=== PATIENT | male | born 1980 | race Two or more races ===

== ENCOUNTER 2017-05-11 08:22 | Inpatient (IN) | payer OTHER ==
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
[2017-05-11] MEDS ORDERED: guaiFENesin/D-METHORPHAN HB 10 ML UNIT-DOSE CUPS PO PRN (12:21)
[2017-05-11] MEDS ORDERED: MAGNESIUM CITRATE 300 ML BOTTLE PO PRN (12:21)
[2017-05-11] MEDS ORDERED: LOPERAMIDE HCL 2 MG CAPSULE PO PRN (12:21)
[2017-05-11] MEDS ORDERED: MAG HYDROX/AL HYDROX/SIMETH 30 ML UNIT-DOSE CUP PO PRN (12:21)
[2017-05-11] MEDS ORDERED: IBUPROFEN 400 MG TABLET (FP) PO PRN (12:21)
[2017-05-11] MEDS ORDERED: P-EPHED 60MG/TRIPROLIDI 2.5MG TABLET PO PRN (12:21)
[2017-05-11] MEDS ORDERED: NICOTINE POLACRILEX 4 MG GUM BC PRN (12:21)
[2017-05-11] MEDS ORDERED: MAGNESIUM HYDROX 2400MG/30ML ORAL SUSPENSION 30 ML CUP PO PRN (12:21)
[2017-05-11] MEDS ORDERED: MENTHOL/PHENOL 1 EACH UD MM PRN (12:21)
[2017-05-11] MEDS ORDERED: diphenhydrAMINE HCL 50 MG CAPSULE PO PRN (12:21)
[2017-05-11] MEDS ORDERED: ACETAMINOPHEN 325 MG TABLET (FP) PO PRN (12:21)
[2017-05-11] MEDS ORDERED: METHADONE HCL 10 MG TABLET PO ONE (12:25)
[2017-05-11] MEDS ORDERED: METHADONE HCL 5 MG TABLET ONE (14:11)
[2017-05-11] MEDS ORDERED: METHADONE HCL 10 MG TABLET ONE (14:11)
[2017-05-11] MEDS ORDERED: METHADONE HCL 40 MG DISPERSABLE TABLET ONE (14:12)
[2017-05-11] MEDS: diazePAM 5 MG TABLET PO SCH ×2 (14:16→22:39)
[2017-05-11] MEDS ORDERED: diazePAM 5 MG TABLET PO ONE (14:30)
[2017-05-11] MEDS ORDERED: METHADONE 120 MG, METHADONE 10 MG, METHADONE 5 MG PO ONE (14:30)
[2017-05-11] MEDS: NICOTINE 21 MG/24 HOURS TOPICAL PATCH TD SCH (14:42)
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
[2017-05-11] MEDS: SERTRALINE HCL 50 MG TABLET (FP) PO SCH (16:59)
[2017-05-11 19:12] LABS: HIV 1 & 2 AB NEGATIVE; HIV 1 AGp24 NEGATIVE
[2017-05-11] MEDS: TOLNAFTATE 1% CREAM 15 GM TUBE TP SCH (22:38)
[2017-05-11] MEDS: traZODone HCL 50 MG TABLET (FP) PO SCH (22:39)
[2017-05-11] MEDS: THIAMINE HCL 100 MG TABLET (FP) PO SCH (22:39)
[2017-05-11] MEDS: ARIPiprazole 10 MG TABLET PO SCH (22:40)
[2017-05-12] MEDS ORDERED: METHADONE HCL 5 MG TABLET ONE (04:34)
[2017-05-12] MEDS ORDERED: METHADONE HCL 10 MG TABLET ONE (04:34)
[2017-05-12] MEDS ORDERED: METHADONE HCL 40 MG DISPERSABLE TABLET ONE (04:35)
[2017-05-12] MEDS: METHADONE 120 MG, METHADONE 10 MG, METHADONE 5 MG PO SCH (05:54)
[2017-05-12] MEDS: diazePAM 5 MG TABLET PO SCH ×3 (05:54→22:29)
[2017-05-12] MEDS ORDERED: METHADONE HCL 10 MG TABLET PO SCH (06:00)
[2017-05-12] MEDS: diazePAM 5 MG TABLET PO PRN (09:17)
--- NOTE | 2017-05-12 10:04 | EKG ---
Test Reason : Blood Pressure : / mmHG Vent. Rate : 065 BPM Atrial Rate : 065 BPM P-R Int : 132 ms QRS Dur : 086 ms QT Int : 420 ms P-R-T Axes : 067 055 029 degrees QTc Int : 436 ms NORMAL SINUS RHYTHM NORMAL ECG NO PREVIOUS ECGS AVAILABLE Confirmed by GURPREET PITTMAN MD ([id number]) on 05/12/2017 10:04:14 AM Referred By: Confirmed By:GURPREET PITTMAN MD
[2017-05-12 10:14] LABS: MCH 31.5 pg (25.7-33.7); MCHC 33.2 g/dl (32.0-35.9); MEAN CELL VOLUME 94.9 fl (80-96); MEAN PLT VOLUME 10.2 fl (7.5-11.1); PLATELET COUNT 255 K/MM3 (134-434); RDW 13.2 % (11.9-15.9); WHITE BLOOD COUNT 6.5 K/mm3 (4.0-10.0)
[2017-05-12 10:15] LABS: URINE APPEARANCE TURBID; URINE BILIRUBIN NEGATIVE (NEGATIVE); URINE BLOOD NEGATIVE (NEGATIVE); URINE COLOR YELLOW; URINE GLUCOSE (UA) NEGATIVE (NEGATIVE); URINE KETONE NEGATIVE (NEGATIVE); URINE LEUK ESTERASE NEGATIVE (NEGATIVE); URINE NITRITE NEGATIVE (NEGATIVE); URINE UROBILINOGEN 2.0 E.U/dl E.U./dl (0.2-1.0)
[2017-05-12 10:18] LABS: URINE PROTEIN 1+ (NEGATIVE)
[2017-05-12] MEDS: TOLNAFTATE 1% CREAM 15 GM TUBE TP SCH ×2 (10:37→22:30)
[2017-05-12] MEDS: SERTRALINE HCL 50 MG TABLET (FP) PO SCH (10:38)
[2017-05-12] MEDS: NICOTINE 21 MG/24 HOURS TOPICAL PATCH TD SCH (10:38)
[2017-05-12] MEDS: PRENATAL VITAMINS W/ FOLIC ACID TABLET (FP) PO SCH (10:38)
[2017-05-12 10:46] LABS: ALBUMIN 3.9 g/dl (3.4-5.0); ANION GAP 9 (8-16); CALCIUM 9.4 mg/dL (8.5-10.1); CO2 28 mmol/L (21-32); GLUCOSE,RANDOM 89 mg/dL (74-106); SGOT/AST 15 U/L (15-37); SGPT/ALT 21 U/L (12-78)
[2017-05-12 10:48] LABS: ALK PHOS 70 U/L (45-117); BILIRUBIN,TOTAL 0.2 mg/dL (0.2-1.0); CREATININE 0.8 mg/dL (0.7-1.3); TOT PROT 7.2 g/dl (6.4-8.2)
[2017-05-12 11:14] LABS: URINE MUCUS FEW; URINE RBC 4 /hpf (0-3)
--- NOTE | 2017-05-12 16:19 | PN ---
S CIWA - CIWA Score Nausea/Vomitin Muscle Tremors: 4-Moderate,w/Arms Extend Anxiety: 3 Agitation: 2 Paroxysmal Sweats: No Perspiration Orientation: 0-Oriented Tacttile Disturbances: 2-Mild Itch/Numbness/Burn Auditory Disturbances: 2-Mild Harshness/Frighten Visual Disturbances: 3-Moderate Sensitivity Headache: 0-None Present CIWA-Ar Total Score: 19 BHS Progress Note (SOAP) Subjective: Stomach Cramping, Nausea, Runny Nose, Tremors. Objective: PT. A & O X 3. NO ACUTE DISTRESS. 05/12/17 16:18 Vital Signs Temperature 97.2 F L 05/12/17 14:08 Pulse Rate 54 L 05/12/17 14:08 Respiratory Rate 18 05/12/17 14:08 Blood Pressure 95/51 05/12/17 14:08 O2 Sat by Pulse Oximetry (%) Laboratory Tests 05/11/17 05/12/17 05/12/17 10:30 06:10 06:10 WBC 6.5 RBC 4.29 Hgb 13.5 Hct 40.7 MCV 94.9 MCHC 33.2 RDW 13.2 Plt Count 255 D MPV 10.2 Sodium 143 Potassium 4.2 Chloride 106 Carbon Dioxide 28 Anion Gap 9 BUN 20 H Creatinine 0.8 Creat Clearance w eGFR > 60 Random Glucose 89 D Calcium 9.4 Total Bilirubin 0.2 D AST 15 D ALT 21 D Alkaline Phosphatase 70 Total Protein 7.2 Albumin 3.9 Urine Color Urine Appearance Urine pH Ur Specific [place] Urine Protein Urine Glucose (UA) Urine Ketones Urine Blood Urine Nitrite Urine Bilirubin Urine Urobilinogen Ur Leukocyte Esterase Urine RBC Urine WBC Amorphous Urates Urine Mucus HIV 1&2 Antibody Screen Negative HIV P24 Antigen Negative 05/12/17 08:40 WBC RBC Hgb Hct MCV MCHC RDW Plt Count MPV Sodium Potassium Chloride Carbon Dioxide Anion Gap BUN Creatinine Creat Clearance w eGFR Random Glucose Calcium Total Bilirubin AST ALT Alkaline Phosphatase Total Protein Albumin Urine Color Yellow Urine Appearance Turbid Urine pH 6.0 Ur Specific [place] >= 1.030 H Urine Protein 1+ H Urine Glucose (UA) Negative Urine Ketones Negative Urine Blood Negative Urine Nitrite Negative Urine Bilirubin Negative Urine Urobilinogen 2.0 e.u/dl Ur Leukocyte Esterase Negative Urine RBC 4 Urine WBC None Amorphous Urates Many Urine Mucus Few HIV 1&2 Antibody Screen HIV P24 Antigen LABS NOTED. Assessment: 05/12/17 16:19 WITHDRAWAL SYMPTOMS. Plan: CONTINUE DETOX. INCREASE PO FLUID INTAKE.
[2017-05-12] MEDS: traZODone HCL 50 MG TABLET (FP) PO SCH (22:29)
[2017-05-12] MEDS: ARIPiprazole 10 MG TABLET PO SCH (22:29)
[2017-05-12] MEDS: THIAMINE HCL 100 MG TABLET (FP) PO SCH (22:29)
[2017-05-13] MEDS ORDERED: METHADONE HCL 10 MG TABLET ONE (04:14)
[2017-05-13] MEDS ORDERED: METHADONE HCL 40 MG DISPERSABLE TABLET ONE (04:14)
[2017-05-13] MEDS ORDERED: METHADONE HCL 5 MG TABLET ONE (04:14)
[2017-05-13] MEDS: METHADONE 120 MG, METHADONE 10 MG, METHADONE 5 MG PO SCH (05:34)
[2017-05-13] MEDS: diazePAM 5 MG TABLET PO PRN ×2 (05:36→13:56)
[2017-05-13] MEDS: diazePAM 5 MG TABLET PO SCH ×2 (10:26→22:17)
[2017-05-13] MEDS: PRENATAL VITAMINS W/ FOLIC ACID TABLET (FP) PO SCH (10:26)
[2017-05-13] MEDS: NICOTINE 21 MG/24 HOURS TOPICAL PATCH TD SCH (10:27)
[2017-05-13] MEDS: TOLNAFTATE 1% CREAM 15 GM TUBE TP SCH ×2 (10:28→22:17)
--- NOTE | 2017-05-13 14:11 | PN ---
S CIWA - CIWA Score Nausea/Vomitin Muscle Tremors: 4-Moderate,w/Arms Extend Anxiety: 3 Agitation: 3 Paroxysmal Sweats: 1-Minimal Palms Moist Orientation: 0-Oriented Tacttile Disturbances: 1-Very Mild Itch/Numbness Auditory Disturbances: 0-None Visual Disturbances: 0-None Headache: 3-Moderate CIWA-Ar Total Score: 18 BHS Progress Note (SOAP) Subjective: Anxiety, nausea, headache, interrupted sleep Objective: 05/13/17 14:07 Last Vital Signs Temp Pulse Resp BP Pulse Ox 98.1 F 53 L 18 100/59 05/13/17 13:17 05/13/17 13:17 05/13/17 13:17 05/13/17 13:17 Laboratory Tests 05/11/17 05/12/17 05/12/17 10:30 06:10 06:10 WBC 6.5 RBC 4.29 Hgb 13.5 Hct 40.7 MCV 94.9 MCHC 33.2 RDW 13.2 Plt Count 255 D MPV 10.2 Sodium 143 Potassium 4.2 Chloride 106 Carbon Dioxide 28 Anion Gap 9 BUN 20 H Creatinine 0.8 Creat Clearance w eGFR > 60 Random Glucose 89 D Calcium 9.4 Total Bilirubin 0.2 D AST 15 D ALT 21 D Alkaline Phosphatase 70 Total Protein 7.2 Albumin 3.9 Urine Color Urine Appearance Urine pH Ur Specific [place] Urine Protein Urine Glucose (UA) Urine Ketones Urine Blood Urine Nitrite Urine Bilirubin Urine Urobilinogen Ur Leukocyte Esterase Urine RBC Urine WBC Amorphous Urates Urine Mucus RPR Titer HIV 1&2 Antibody Screen Negative HIV P24 Antigen Negative 05/12/17 05/12/17 06:10 08:40 WBC RBC Hgb Hct MCV MCHC RDW Plt Count MPV Sodium Potassium Chloride Carbon Dioxide Anion Gap BUN Creatinine Creat Clearance w eGFR Random Glucose Calcium Total Bilirubin AST ALT Alkaline Phosphatase Total Protein Albumin Urine Color Yellow Urine Appearance Turbid Urine pH 6.0 Ur Specific [place] >= 1.030 H Urine Protein 1+ H Urine Glucose (UA) Negative Urine Ketones Negative Urine Blood Negative Urine Nitrite Negative Urine Bilirubin Negative Urine Urobilinogen 2.0 e.u/dl Ur Leukocyte Esterase Negative Urine RBC 4 Urine WBC None Amorphous Urates Many Urine Mucus Few RPR Titer Nonreactive HIV 1&2 Antibody Screen HIV P24 Antigen Labs noted: BUN 20, UA: 1+ protein Assessment: 05/13/17 14:09 Withdrawal symptoms Noted with mild azotemia and proteinuria Plan: Continue detox Mild azotemia: encouraged to drink lots of water Proteinuria: encouraged to drink lots of water, repeat UA
[2017-05-13] MEDS: traZODone HCL 50 MG TABLET (FP) PO SCH (22:17)
[2017-05-13] MEDS: THIAMINE HCL 100 MG TABLET (FP) PO SCH (22:17)
[2017-05-13] MEDS: ARIPiprazole 10 MG TABLET PO SCH (22:18)
[2017-05-14] MEDS ORDERED: METHADONE HCL 5 MG TABLET ONE (03:49)
[2017-05-14] MEDS ORDERED: METHADONE HCL 10 MG TABLET ONE (03:49)
[2017-05-14] MEDS ORDERED: METHADONE HCL 40 MG DISPERSABLE TABLET ONE (03:50)
[2017-05-14] MEDS: METHADONE 120 MG, METHADONE 10 MG, METHADONE 5 MG PO SCH (05:42)
[2017-05-14] MEDS: diazePAM 5 MG TABLET PO PRN (05:45)
[2017-05-14] MEDS: NICOTINE 21 MG/24 HOURS TOPICAL PATCH TD SCH (10:47)
[2017-05-14] MEDS: PRENATAL VITAMINS W/ FOLIC ACID TABLET (FP) PO SCH (10:48)
[2017-05-14] MEDS: diazePAM 5 MG TABLET PO SCH ×2 (10:48→22:41)
[2017-05-14] MEDS: TOLNAFTATE 1% CREAM 15 GM TUBE TP SCH ×2 (10:49→22:42)
--- NOTE | 2017-05-14 13:46 | PN ---
BHS Progress Note (SOAP) Subjective: Sweating,interrupted sleep,restless Objective: 05/14/17 13:45 Vital Signs - 8 hr 05/14/17 05/14/17 06:26 09:49 Temperature 97.2 F L 97.0 F L Pulse Rate 68 62 Respiratory 18 18 Rate Blood Pressure 138/79 117/71 Laboratory Last Values WBC 6.5 K/mm3 (4.0-10.0) 05/12/17 06:10 RBC 4.29 M/mm3 (4.00-5.60) 05/12/17 06:10 Hgb 13.5 GM/dL (11.7-16.9) 05/12/17 06:10 Hct 40.7 % (35.4-49) 05/12/17 06:10 MCV 94.9 fl (80-96) 05/12/17 06:10 MCHC 33.2 g/dl (32.0-35.9) 05/12/17 06:10 RDW 13.2 % (11.9-15.9) 05/12/17 06:10 Plt Count 255 K/MM3 (134-434) D 05/12/17 06:10 MPV 10.2 fl (7.5-11.1) 05/12/17 06:10 Sodium 143 mmol/L (136-145) 05/12/17 06:10 Potassium 4.2 mmol/L (3.5-5.1) 05/12/17 06:10 Chloride 106 mmol/L (98-107) 05/12/17 06:10 Carbon Dioxide 28 mmol/L (21-32) 05/12/17 06:10 Anion Gap 9 (8-16) 05/12/17 06:10 BUN 20 mg/dL (7-18) H 05/12/17 06:10 Creatinine 0.8 mg/dL (0.7-1.3) 05/12/17 06:10 Creat Clearance w eGFR > 60 (>60) 05/12/17 06:10 Random Glucose 89 mg/dL (74-106) D 05/12/17 06:10 Calcium 9.4 mg/dL (8.5-10.1) 05/12/17 06:10 Total Bilirubin 0.2 mg/dL (0.2-1.0) D 05/12/17 06:10 AST 15 U/L (15-37) D 05/12/17 06:10 ALT 21 U/L (12-78) D 05/12/17 06:10 Alkaline Phosphatase 70 U/L (45-117) 05/12/17 06:10 Total Protein 7.2 g/dl (6.4-8.2) 05/12/17 06:10 Albumin 3.9 g/dl (3.4-5.0) 05/12/17 06:10 Urine Color Yellow 05/12/17 08:40 Urine Appearance Turbid 05/12/17 08:40 Urine pH 6.0 (5.0-8.0) 05/12/17 08:40 Ur Specific [place] >= 1.030 (1.005-1.025) H 05/12/17 08:40 Urine Protein 1+ (NEGATIVE) H 05/12/17 08:40 Urine Glucose (UA) Negative (NEGATIVE) 05/12/17 08:40 Urine Ketones Negative (NEGATIVE) 05/12/17 08:40 Urine Blood Negative (NEGATIVE) 05/12/17 08:40 Urine Nitrite Negative (NEGATIVE) 05/12/17 08:40 Urine Bilirubin Negative (NEGATIVE) 05/12/17 08:40 Urine Urobilinogen 2.0 e.u/dl E.U./dl (0.2-1.0) 05/12/17 08:40 Ur Leukocyte Esterase Negative (NEGATIVE) 05/12/17 08:40 Urine RBC 4 /hpf (0-3) 05/12/17 08:40 Urine WBC None /hpf (3-5) 05/12/17 08:40 Amorphous Urates Many /hpf (NONE SEEN) 05/12/17 08:40 Urine Mucus Few 05/12/17 08:40 RPR Titer Nonreactive (NONREACTIVE) 05/12/17 06:10 HIV 1&2 Antibody Screen Negative 05/11/17 10:30 HIV P24 Antigen Negative 05/11/17 10:30 labs noted Assessment: 05/14/17 13:46 Withdrawal sx. Plan: Continue detox
[2017-05-14 15:31] LABS: URINE APPEARANCE CLEAR; URINE BILIRUBIN NEGATIVE (NEGATIVE); URINE BLOOD NEGATIVE (NEGATIVE); URINE COLOR STRAW; URINE GLUCOSE (UA) NEGATIVE (NEGATIVE); URINE KETONE NEGATIVE (NEGATIVE); URINE NITRITE NEGATIVE (NEGATIVE); URINE PROTEIN NEGATIVE (NEGATIVE); URINE UROBILINOGEN NEGATIVE E.U./dl (0.2-1.0)
[2017-05-14 15:32] LABS: URINE LEUK ESTERASE TRACE (NEGATIVE)
[2017-05-14 15:34] LABS: URINE BACTERIA RARE /hpf (NONE SEEN); URINE RBC <1 /hpf (0-3)
[2017-05-14] MEDS: ARIPiprazole 10 MG TABLET PO SCH (22:40)
[2017-05-14] MEDS: traZODone HCL 50 MG TABLET (FP) PO SCH (22:41)
[2017-05-14] MEDS: THIAMINE HCL 100 MG TABLET (FP) PO SCH (22:41)
[2017-05-15] MEDS ORDERED: METHADONE HCL 5 MG TABLET ONE (05:12)
[2017-05-15] MEDS ORDERED: METHADONE HCL 10 MG TABLET ONE (05:12)
[2017-05-15] MEDS ORDERED: METHADONE HCL 40 MG DISPERSABLE TABLET ONE (05:13)
[2017-05-15] MEDS: METHADONE 120 MG, METHADONE 10 MG, METHADONE 5 MG PO SCH (05:38)
[2017-05-15] MEDS ORDERED: diazePAM 5 MG TABLET PO SCH (10:00)
[2017-05-15] MEDS: PRENATAL VITAMINS W/ FOLIC ACID TABLET (FP) PO SCH (10:45)
[2017-05-15] MEDS: NICOTINE 21 MG/24 HOURS TOPICAL PATCH TD SCH (10:46)
[2017-05-15] MEDS: TOLNAFTATE 1% CREAM 15 GM TUBE TP SCH ×2 (10:48→22:21)
--- NOTE | 2017-05-15 11:11 | DS ---
[facility] Detox Discharge Summary Admission Date: 05/11/17 Discharge Date: 05/15/17 - History Present History: Alcohol Dependence, Cannabis Dependence, Cocaine Dependence, MMTP Pertinent Past History: Insomnia - Physical Exam Results Vital Signs: Vital Signs Temperature 97.1 F L 05/15/17 09:24 Pulse Rate 69 05/15/17 09:24 Respiratory Rate 18 05/15/17 09:24 Blood Pressure 106/67 05/15/17 09:24 O2 Sat by Pulse Oximetry (%) Pertinent Admission Physical Exam Findings: Withdrawal sx. Laboratory Last Values WBC 6.5 K/mm3 (4.0-10.0) 05/12/17 06:10 RBC 4.29 M/mm3 (4.00-5.60) 05/12/17 06:10 Hgb 13.5 GM/dL (11.7-16.9) 05/12/17 06:10 Hct 40.7 % (35.4-49) 05/12/17 06:10 MCV 94.9 fl (80-96) 05/12/17 06:10 MCHC 33.2 g/dl (32.0-35.9) 05/12/17 06:10 RDW 13.2 % (11.9-15.9) 05/12/17 06:10 Plt Count 255 K/MM3 (134-434) D 05/12/17 06:10 MPV 10.2 fl (7.5-11.1) 05/12/17 06:10 Sodium 143 mmol/L (136-145) 05/12/17 06:10 Potassium 4.2 mmol/L (3.5-5.1) 05/12/17 06:10 Chloride 106 mmol/L (98-107) 05/12/17 06:10 Carbon Dioxide 28 mmol/L (21-32) 05/12/17 06:10 Anion Gap 9 (8-16) 05/12/17 06:10 BUN 20 mg/dL (7-18) H 05/12/17 06:10 Creatinine 0.8 mg/dL (0.7-1.3) 05/12/17 06:10 Creat Clearance w eGFR > 60 (>60) 05/12/17 06:10 Random Glucose 89 mg/dL (74-106) D 05/12/17 06:10 Calcium 9.4 mg/dL (8.5-10.1) 05/12/17 06:10 Total Bilirubin 0.2 mg/dL (0.2-1.0) D 05/12/17 06:10 AST 15 U/L (15-37) D 05/12/17 06:10 ALT 21 U/L (12-78) D 05/12/17 06:10 Alkaline Phosphatase 70 U/L (45-117) 05/12/17 06:10 Total Protein 7.2 g/dl (6.4-8.2) 05/12/17 06:10 Albumin 3.9 g/dl (3.4-5.0) 05/12/17 06:10 Urine Color Straw 05/14/17 11:30 Urine Appearance Clear 05/14/17 11:30 Urine pH 5.0 (5.0-8.0) 05/14/17 11:30 Ur Specific [place] 1.010 (1.005-1.025) 05/14/17 11:30 Urine Protein Negative (NEGATIVE) 05/14/17 11:30 Urine Glucose (UA) Negative (NEGATIVE) 05/14/17 11:30 Urine Ketones Negative (NEGATIVE) 05/14/17 11:30 Urine Blood Negative (NEGATIVE) 05/14/17 11:30 Urine Nitrite Negative (NEGATIVE) 05/14/17 11:30 Urine Bilirubin Negative (NEGATIVE) 05/14/17 11:30 Urine Urobilinogen Negative E.U./dl (0.2-1.0) 05/14/17 11:30 Ur Leukocyte Esterase Trace (NEGATIVE) H 05/14/17 11:30 Urine RBC <1 /hpf (0-3) 05/14/17 11:30 Urine WBC None /hpf (3-5) 05/14/17 11:30 Amorphous Urates Many /hpf (NONE SEEN) 05/12/17 08:40 Urine Bacteria Rare /hpf (NONE SEEN) 05/14/17 11:30 Urine Mucus Few 05/12/17 08:40 [place] 0 MEQ/L (0.6-1.2) L 05/12/17 08:00 RPR Titer Nonreactive (NONREACTIVE) 05/12/17 06:10 HIV 1&2 Antibody Screen Negative 05/11/17 10:30 HIV P24 Antigen Negative 05/11/17 10:30 labs noted - Treatment Hospital Course: Detox Protocol Followed, Detoxed Safely, Responded well, Discharged Condition Good, Rehab Referral Accepted Patient has Accepted a Rehab Referral to: [facility] - Medication Discharge Medications: Ambulatory Orders Methadone [Dolophine -] 135 mg PO DAILY 06/15/16 Albuterol Sulfate Inhaler - [Ventolin HFA Inhaler -] 2 inh PO Q4H PRN #1 inhaler 11/01/16 Trazodone HCl [Desyrel -] 100 mg PO HS 05/11/17 Aripiprazole [Abilify] 10 mg PO HS #30 tablet 05/12/17 Trazodone HCl 50 mg PO HS #30 tablet 05/12/17 - Diagnosis (1) Alcohol dependence with uncomplicated withdrawal Current Visit: Yes Status: Acute (2) Cannabis dependence, uncomplicated Current Visit: Yes Status: Acute (3) Cocaine dependence, uncomplicated Current Visit: Yes Status: Acute (4) Insomnia Current Visit: Yes Status: Acute (5) Nicotine dependence Current Visit: Yes Status: Acute Qualifiers: Nicotine product type: cigarettes Substance use status: in withdrawal Qualified Code(s): F17.213 - Nicotine dependence, cigarettes, with withdrawal (6) Opioid dependence on agonist therapy Current Visit: Yes Status: Acute (7) Bipolar 1 disorder Current Visit: Yes Status: Chronic - AMA Did Patient Leave Against Medical Advice: No
[2017-05-15 14:04] VITALS: BMI 29.9
--- NOTE | 2017-05-15 15:27 | HP ---
Psychiatrist Admission - Data Date of interview: 05/15/17 Admission source: 6N Identifying data: This is the third 5n inpatient rehabilitation admission for this 36 year old male who is single,a father of two,homeless, unemployed and supported on SSI benefits. Medical History: Bakari, Hep C,smokes cigarettes 1 PPD and on MMTP 135 mg/daily. Psychiatric History: Patient reports was diagnosed with anxiety bipolar disorder. First psychiatric hospitalization in 2002 to address depression, had a psychotic epiosde and overdosed with pills, admitted to [facility], reports multiple psychiatric hospitalizations ([facility], [facility] ,[facility]). PAtient is non-compliant with aftercare and medications, last took medications 2 weeks ago, states he follows up at the [facility] and curently on Trazodone 100 mg po hs, Cos Cob 300 mg po bid,and Abilify 10 mg daily. seen by continued Abilify and Trazodone, but Cos Cob. As per medical record from his last 5N treatment was on Cos Cob 300 mg po bid. Vital Signs: Vital Signs - 24 hr 05/14/17 05/14/17 05/15/17 17:47 22:00 00:30 Temperature 98.7 F 97.8 F Pulse Rate 60 71 Respiratory 19 18 18 Rate Blood Pressure 101/57 112/76 05/15/17 05/15/17 05/15/17 03:30 06:27 09:24 Temperature 97.2 F L 97.1 F L Pulse Rate 73 69 Respiratory 18 18 18 Rate Blood Pressure 111/67 106/67 05/15/17 13:59 Temperature 98.2 F Pulse Rate 69 Respiratory 18 Rate Blood Pressure 125/67 Allergies/Adverse Reactions: Allergies Allergy/AdvReac Type Severity Reaction Status Date / Time haloperidol [From Haldol] Allergy Severe Difficulty Verified 05/15/17 14:26 Breathing haloperidol lactate Allergy Severe Difficulty Verified 05/15/17 14:26 [From Haldol] Breathing risperidone [From Risperdal] Allergy Severe Difficulty Verified 05/15/17 14:26 Breathing ziprasidone HCl [From Geodon] Allergy Severe Swelling Verified 05/15/17 14:26 ziprasidone mesylate Allergy Severe Swelling Verified 05/15/17 14:26 [From Geodon] Date of last physical exam: 06/16/17 Concur with the findings of this exam: Yes - Substance Abuse/Tx History Hx Alcohol Use: Yes Hx Substance Use: Yes Substance Use Type: Alcohol (4-5 oz can of beer), Cocaine (1 gr injecting daily use), Heroin (1-2 times a week 3 bags injecting ), Marijuana (daily use), Tranquilizers (xanax 2-3 bars daily use ) Hx Substance Use Treatment: Yes ([facility] x 2 ) - Admission Criteria Previous failed treatment: Yes Poor recovery environment: Yes Comorbidities: Yes Lacks judgement: Yes Mental Status Exam - Mental Status Exam Alert and Oriented to: Time, Place, Person Cognitive Function: Good Patient Appearance: Well Groomed Mood: Depressed, Sad Affect: Appropriate, Mood Congruent Patient Behavior: Appropriate, Cooperative Speech Pattern: Clear, Appropriate Voice Loudness: Normal Thought Process: Goal Oriented Thought Disorder: Not Present Hallucinations: Denies Suicidal Ideation: Denies Homicidal Ideation: Denies Insight/Judgement: Fair Sleep: Fair Appetite: Fair Muscle strength/Tone: Normal Gait/Station: Normal Psychiatric Findings - Problem List ([place] 1, 2,3) (1) Cannabis dependence, uncomplicated Current Visit: Yes Status: Acute (2) Cocaine dependence, uncomplicated Current Visit: Yes Status: Acute (3) Nicotine dependence Current Visit: Yes Status: Acute Qualifiers: Nicotine product type: cigarettes Substance use status: in withdrawal Qualified Code(s): F17.213 - Nicotine dependence, cigarettes, with withdrawal (4) Opioid dependence on agonist therapy Current Visit: Yes Status: Acute (5) Bipolar 1 disorder Current Visit: Yes Status: Chronic (6) Opioid dependence Current Visit: Yes Status: Acute (7) Alcohol dependence Current Visit: Yes Status: Acute - Initial Treatment Plan Initial Treatment Plan: Will continue Abilify, Trazodone will add Cos Cob 300 mg po bid, monitor progress as needed.
[2017-05-15] MEDS: ARIPiprazole 10 MG TABLET PO SCH (22:20)
[2017-05-15] MEDS: traZODone HCL 100 MG TABLET (FP) PO SCH (22:21)
[2017-05-15] MEDS: THIAMINE HCL 100 MG TABLET (FP) PO SCH (22:21)
[2017-05-15] MEDS: LITHIUM CARBONATE 300 MG CAPSULE (FP) PO SCH (22:21)
[2017-05-16] MEDS ORDERED: METHADONE HCL 5 MG TABLET ONE (03:34)
[2017-05-16] MEDS ORDERED: METHADONE HCL 10 MG TABLET ONE (03:34)
[2017-05-16] MEDS ORDERED: METHADONE HCL 40 MG DISPERSABLE TABLET ONE (03:34)
[2017-05-16] MEDS: METHADONE 120 MG, METHADONE 10 MG, METHADONE 5 MG PO SCH (06:35)
[2017-05-16] MEDS: NICOTINE 21 MG/24 HOURS TOPICAL PATCH TD SCH (10:49)
[2017-05-16] MEDS: PRENATAL VITAMINS W/ FOLIC ACID TABLET (FP) PO SCH (10:49)
[2017-05-16] MEDS: TOLNAFTATE 1% CREAM 15 GM TUBE TP SCH ×2 (10:49→21:59)
[2017-05-16] MEDS: LITHIUM CARBONATE 300 MG CAPSULE (FP) PO SCH ×2 (10:49→21:58)
[2017-05-16] MEDS: ARIPiprazole 10 MG TABLET PO SCH (21:58)
[2017-05-16] MEDS: THIAMINE HCL 100 MG TABLET (FP) PO SCH (21:58)
[2017-05-16] MEDS: traZODone HCL 100 MG TABLET (FP) PO SCH (21:58)
[2017-05-17] MEDS ORDERED: METHADONE HCL 5 MG TABLET ONE (03:22)
[2017-05-17] MEDS ORDERED: METHADONE HCL 40 MG DISPERSABLE TABLET ONE (03:23)
[2017-05-17] MEDS ORDERED: METHADONE HCL 10 MG TABLET ONE (03:23)
[2017-05-17] MEDS: METHADONE 120 MG, METHADONE 10 MG, METHADONE 5 MG PO SCH (06:43)
[2017-05-17] MEDS: TOLNAFTATE 1% CREAM 15 GM TUBE TP SCH ×2 (10:56→22:24)
[2017-05-17] MEDS: NICOTINE 21 MG/24 HOURS TOPICAL PATCH TD SCH (10:56)
[2017-05-17] MEDS: PRENATAL VITAMINS W/ FOLIC ACID TABLET (FP) PO SCH (10:56)
[2017-05-17] MEDS: LITHIUM CARBONATE 300 MG CAPSULE (FP) PO SCH ×2 (10:56→22:24)
[2017-05-17] MEDS: THIAMINE HCL 100 MG TABLET (FP) PO SCH (22:23)
[2017-05-17] MEDS: ARIPiprazole 10 MG TABLET PO SCH (22:24)
[2017-05-17] MEDS: traZODone HCL 100 MG TABLET (FP) PO SCH (22:24)
[2017-05-18] MEDS ORDERED: METHADONE HCL 40 MG DISPERSABLE TABLET ONE (04:29)
[2017-05-18] MEDS ORDERED: METHADONE HCL 10 MG TABLET ONE (04:29)
[2017-05-18] MEDS ORDERED: METHADONE HCL 5 MG TABLET ONE (04:29)
[2017-05-18] MEDS ORDERED: hydrOXYzine PAMOATE 50 MG CAPSULE (FP) PO PRN (04:43)
[2017-05-18] MEDS: METHADONE 120 MG, METHADONE 10 MG, METHADONE 5 MG PO SCH (06:17)
[2017-05-18] MEDS: LITHIUM CARBONATE 300 MG CAPSULE (FP) PO SCH ×2 (10:41→22:16)
[2017-05-18] MEDS: TOLNAFTATE 1% CREAM 15 GM TUBE TP SCH ×2 (10:41→22:17)
[2017-05-18] MEDS: PRENATAL VITAMINS W/ FOLIC ACID TABLET (FP) PO SCH (10:41)
[2017-05-18] MEDS: NICOTINE 21 MG/24 HOURS TOPICAL PATCH TD SCH (10:41)
[2017-05-18] MEDS: traZODone HCL 100 MG TABLET (FP) PO SCH (22:16)
[2017-05-18] MEDS: ARIPiprazole 10 MG TABLET PO SCH (22:16)
[2017-05-18] MEDS: THIAMINE HCL 100 MG TABLET (FP) PO SCH (22:16)
[2017-05-19] MEDS ORDERED: METHADONE HCL 5 MG TABLET ONE (03:36)
[2017-05-19] MEDS ORDERED: METHADONE HCL 10 MG TABLET ONE (03:36)
[2017-05-19] MEDS ORDERED: METHADONE HCL 40 MG DISPERSABLE TABLET ONE (03:37)
[2017-05-19] MEDS: METHADONE 120 MG, METHADONE 10 MG, METHADONE 5 MG PO SCH (06:18)
[2017-05-19] MEDS: PRENATAL VITAMINS W/ FOLIC ACID TABLET (FP) PO SCH (10:19)
[2017-05-19] MEDS: LITHIUM CARBONATE 300 MG CAPSULE (FP) PO SCH ×2 (10:19→23:47)
[2017-05-19] MEDS: NICOTINE 21 MG/24 HOURS TOPICAL PATCH TD SCH (10:20)
[2017-05-19] MEDS: TOLNAFTATE 1% CREAM 15 GM TUBE TP SCH ×2 (10:21→23:47)
[2017-05-19] MEDS ORDERED: traZODone HCL 50 MG TABLET (FP) ONE (22:28)
[2017-05-19] MEDS: ARIPiprazole 10 MG TABLET PO SCH (22:29)
[2017-05-19] MEDS: THIAMINE HCL 100 MG TABLET (FP) PO SCH (22:30)
[2017-05-19] MEDS: traZODone HCL 100 MG TABLET (FP) PO SCH (22:30)
[2017-05-20] MEDS ORDERED: METHADONE HCL 5 MG TABLET ONE (03:28)
[2017-05-20] MEDS ORDERED: METHADONE HCL 10 MG TABLET ONE (03:28)
[2017-05-20] MEDS ORDERED: METHADONE HCL 40 MG DISPERSABLE TABLET ONE (03:29)
[2017-05-20] MEDS: METHADONE 120 MG, METHADONE 10 MG, METHADONE 5 MG PO SCH (06:28)
[2017-05-20] MEDS: PRENATAL VITAMINS W/ FOLIC ACID TABLET (FP) PO SCH (10:33)
[2017-05-20] MEDS: TOLNAFTATE 1% CREAM 15 GM TUBE TP SCH ×2 (10:34→22:20)
[2017-05-20] MEDS: LITHIUM CARBONATE 300 MG CAPSULE (FP) PO SCH ×2 (10:34→21:45)
[2017-05-20] MEDS: NICOTINE 21 MG/24 HOURS TOPICAL PATCH TD SCH (10:34)
[2017-05-20] MEDS: THIAMINE HCL 100 MG TABLET (FP) PO SCH (21:45)
[2017-05-20] MEDS: ARIPiprazole 10 MG TABLET PO SCH (21:45)
[2017-05-20] MEDS: traZODone HCL 100 MG TABLET (FP) PO SCH (21:45)
[2017-05-21] MEDS ORDERED: METHADONE HCL 5 MG TABLET ONE (03:24)
[2017-05-21] MEDS ORDERED: METHADONE HCL 10 MG TABLET ONE (03:24)
[2017-05-21] MEDS ORDERED: METHADONE HCL 40 MG DISPERSABLE TABLET ONE (03:25)
[2017-05-21] MEDS: METHADONE 120 MG, METHADONE 10 MG, METHADONE 5 MG PO SCH (06:22)
[2017-05-21 06:53] VITALS: BP 109/64; PULSE 62; TEMP 97.3
[2017-05-21] MEDS: TOLNAFTATE 1% CREAM 15 GM TUBE TP SCH (11:09)
[2017-05-21] MEDS: NICOTINE 21 MG/24 HOURS TOPICAL PATCH TD SCH (11:09)
[2017-05-21] MEDS: PRENATAL VITAMINS W/ FOLIC ACID TABLET (FP) PO SCH (11:09)
[2017-05-21] MEDS: LITHIUM CARBONATE 300 MG CAPSULE (FP) PO SCH (11:09)
[2017-05-21] MEDS ORDERED: DOCUSATE SODIUM 100 MG CAPSULE (FP) PO SCH (14:00)
--- NOTE | 2017-05-21 18:45 | PN ---
[facility] Progress Note Note: Psychiatry Attending commissioning editor's note : Called to see patient who decided to leave the program. Chart reviewed.Mr Rivera is already known to me. Seen on 05/11/17 on the detox unit at [address] [place] [address].Refer to my note for details. Mr Rivera has changed his mind about pursuing rehabilitation treatment. Patient made the decision to leave [address] [place] [address] and transition to [facility] care. " I don't want to stay any longer.This place is not for me.I miss home." Met with patient to discuss his reasons. He feels that the environment is restrictive/not suitable for his current needs. Mr Rivera indicates that he has personal issues that warrant his immediate attention. No details offered.Patient is encouraged to commit to treatment but he declines to reconsider. " I have a place to stay and a program to go to.I have all I need for my care outside." [facility] discharge plan is confirmed : Housing at [facility]. Chemical Dependency treatment referral at [facility] : [phone] [place] [phone]. Patient denies somatic complaints.Feels well.Sleep/appetite/energy level are self-reported as adequate. He is reminded of the necessity to obtain a lithium level (which would have required another day for result). He refuses." I don't want to take these psychiatric medications anyway.That won' t be necessary." Reminded of the therapeutic effects of psychotropic medications and benefits of adherence to pharmacotherapy. Made aware of risks inherent to non-compliance (relapses,rehospitalizations, deterioration of functioning,impoverished quality of life). Mr Rivera stands firm over his decision to leave this program and abstain from taking psychotropic medications (refuses scripts). He shows no evidence of psychosis,leonor or cognitive impairment.Patient retains his full capacity to make decisions about his welfare. He comments that he understands the validity of teachings provided in this session but he still insists on pursuing his own plans. Unremarkable mental status : alert and fully oriented,conversant,coherent/goal- directed,neatly groomed and well controlled. Euthymic mood/full range affect.No complaint of hallucinations.No delusions elicited.Judgment remains fair. Patient has consistently denied suicidal/homicidal ideation,intent or plan.Mr Rivera is stable. Not a danger to self or others.The patient is at baseline.See staff's notes for details.
--- NOTE | 2017-05-21 21:17 | PN ---
S Progress Note Note: observed patient talking with counselor, alert oriented x 3 speech clearly coherent, denies pain denies suicidal denies homocidal no self destructive behavior, e prescription albuterol sent, agrees follow up with pulmonology
[2017-05-22] MEDS ORDERED: METHADONE HCL 40 MG DISPERSABLE TABLET PO SCH (06:00)
[2017-05-22] MEDS ORDERED: METHADONE 120 MG, METHADONE 10 MG PO SCH (06:00)
--- NOTE | 2017-05-22 14:18 | PN ---
Psychiatric Progress Note Date of Session: 05/21/17 (patient was seen 05/21, documented 05/22) Chief Complaint:: "am leaving" HPI: Patient is a 36 year old male with h/o alcohol, cocaine, cannabis, opioid, nicotine dependence comorbid Bipolar I disorder. ROS: Astma, Hep C medically managed. Current Side Effect: No Lab tests ordered: No Lab tests reviewed: Yes Provider note:: Patient was seen today to explore the reasons to terminate his treatment, patient reports he does not feel comfortable here "I feel I locked in ", also reported he needs to go back to [facility] " it's only the way to get housing". Patient was encouraged to stay and focus on his treatment, patient agreed to stay for today "but unsure about tomorrow", discussed with the patient the importance of obtaining lithium blood level in am, but patient refused. Patient was encouraged to go to the groups, he left the office and wet to his room. Total face to face time:: 35 Mental Status Exam - Mental Status Exam Alert and Oriented to: Time, Place, Person Cognitive Function: Good Patient Appearance: Well Groomed Affect: Appropriate, Mood Congruent Patient Behavior: Appropriate, Cooperative Speech Pattern: Clear, Appropriate Voice Loudness: Normal Thought Process: Goal Oriented Thought Disorder: Not Present Hallucinations: Denies Suicidal Ideation: Denies Homicidal Ideation: Denies Insight/Judgement: Fair Sleep: Fair Appetite: Fair Muscle strength/Tone: Normal Gait/Station: Normal Psychiatric Treatment Plan - Problem List (3) Nicotine dependence Qualifiers: Nicotine product type: cigarettes Substance use status: in withdrawal Qualified Code(s): F17.213 - Nicotine dependence, cigarettes, with withdrawal
== END 2017-05-21 18:50 | disposition left against medical advice (07) | DRG 894 ==
LOC: YASAS 08:22 → Y3N 13:31 → Y5N 05-15 13:36
PROVIDERS: ADMIT Internal Medicine; ATTEND Psychiatry & Neurology Psychiatry
PROC: HZ2ZZZZ Detoxification Services for Substance Abuse Treatment (ICD-10-PCS; principal; 2017-05-11)
PROC: HZ42ZZZ Group Counseling for Substance Abuse Treatment, Cognitive-Behavioral (ICD-10-PCS; 2017-05-15)
DX: F19.230 Other psychoactive substance dependence with withdrawal, uncomplicated (principal); F11.20 Opioid dependence, uncomplicated; F14.20 Cocaine dependence, uncomplicated; F31.89 Other bipolar disorder; F10.230 Alcohol dependence with withdrawal, uncomplicated; F12.20 Cannabis dependence, uncomplicated; F17.213 Nicotine dependence, cigarettes, with withdrawal; J45.909 Unspecified asthma, uncomplicated; G47.00 Insomnia, unspecified; R80.9 Proteinuria, unspecified; R79.89 Other specified abnormal findings of blood chemistry; M25.552 Pain in left hip; G89.29 Other chronic pain
CPT/HCPCS: 36415; 80053; 80178; 81003; 81015; 85027; 86593; 87389; 93005; 93010

== ENCOUNTER 2019-12-24 10:07 | Inpatient (IN) | payer OTHER ==
--- NOTE | 2019-12-24 10:43 | HP ---
CIWA Score Nausea/Vomitin-No Nausea/No Vomiting Muscle Tremors: 3 Anxiety: 4-Mod. Anxious/Guarded Agitation: 4-Moderately Restless Paroxysmal Sweats: 5 Orientation: 1-Uncertain about Date Tacttile Disturbances: 2-Mild Itch/Numbness/Burn Auditory Disturbances: 0-None Visual Disturbances: 0-None Headache: 1-Very Mild CIWA-Ar Total Score: 20 - Admission Criteria OASAS Guidelines: Admission for Medically Managed Detox: Requires at least one of the followin. CIWA greater than 12 2. Seizures within the past 24 hours 3. Delirium tremens within the past 24 hours 4. Hallucinations within the past 24 hours 5. Acute intervention needed for co occurring medical disorder 6. Acute intervention needed for co occurring psychiatric disorder 7. Severe withdrawal that cannot be handled at a lower level of care (continued vomiting, continued diarrhea, abnormal vital signs) requiring intravenous medication and/or fluids 8. Admitting History and Physical - Admission Chief Complaint: "I want to detox because I am at a point in my life where I want to get my life together. I want to get my medical problems taken care of. " History of Present Illness: 39 year old male with history of alcohol, on methadone program, but is still using heroin, cocain, k-2 and Marijuana. He is using 1-2 pints of vodka daily and last used this morning at 2AM but only one shot. 6-12 beers every day. He had a blackout last month, but denies seizures on withdrawals. He is in [facility] but is still unstable and still using heroin. He is using heroin still at 5-10 bags on top of methadone dose. He started using at age 21 He is using cocaine first used at age 15 and last used yesterday. He is using 5 -10 bags per day about $250 per week. Psych: Has Bipolar and Depression but hasn't taken any meds since 2017. Denies SI, SA, hallucinations or delusions. He is smoking 1ppd since age 13 years old PMH: Asthma, HCV getting treated currently Psurg: None He is homeless and in intermediate system. - Smoking History Smoking history: Current every day smoker Have you smoked in the past 12 months: Yes Aproximately how many cigarettes per day: 20 - Alcohol/Substance Use Hx Alcohol Use: Yes Admission ROS BHS - HPI Allergies/Adverse Reactions: Allergies Allergy/AdvReac Type Severity Reaction Status Date / Time haloperidol [From Haldol] Allergy Severe Difficulty Verified 05/15/17 14:26 Breathing haloperidol lactate Allergy Severe Difficulty Verified 05/15/17 14:26 [From Haldol] Breathing risperidone [From Risperdal] Allergy Severe Difficulty Verified 05/15/17 14:26 Breathing ziprasidone HCl [From Geodon] Allergy Severe Swelling Verified 05/15/17 14:26 ziprasidone mesylate Allergy Severe Swelling Verified 05/15/17 14:26 [From Geodon] Patient History - Patient Medical History Hx Anemia: No Hx Asthma: Yes (MDI) Hx Chronic Obstructive Pulmonary Disease (COPD): No Hx Cancer: No Hx Cardiac Disorders: No Hx Congestive Heart Failure: No Hx Hypertension: No Hx Hypercholesterolemia: No Hx Pacemaker: No HX Cerebrovascular Accident: No Hx Seizures: No Hx Dementia: No Hx Diabetes: No Hx Gastrointestinal Disorders: No Hx Liver Disease: No Hx Genitourinary Disorders: No Hx Sexually Transmitted Disorders: No (DENIES) Hx Renal Disease (ESRD): No Hx Thyroid Disease: No Hx Human Immunodeficiency Virus (HIV): No (NEGATIVE HX) Hx Hepatitis C: Yes (TREATED X 3 MONTHS AND COMPLETED A MONTH AGO) Hx Depression: Yes Hx Suicide Attempt: No (DENIES) Hx Bipolar Disorder: Yes Hx Schizophrenia: No - Patient Surgical History Past Surgical History: No Hx Neurologic Surgery: No Hx Cataract Extraction: No Hx Cardiac Surgery: No Hx Lung Surgery: No Hx Breast Surgery: No Hx Breast Biopsy: No Hx Abdominal Surgery: No Hx Appendectomy: No Hx Cholecystectomy: No Hx Genitourinary Surgery: No Hx Section: No Hx Orthopedic Surgery: No Other Surgical History: left lower JAW 2001-NO SX Anesthesia Reaction: No - PPD History Previous Implant?: Yes Documented Results: Negative w/o proof Implanted On Prior [facility] Admission?: Yes Date: 05/13/17 Results: 0 mm PPD to be Administered?: Yes - Smoking Cessation Smoking history: Current every day smoker Have you smoked in the past 12 months: Yes Aproximately how many cigarettes per day: 20 Cigars Per Day: 0 Hx Chewing Tobacco Use: No Initiated information on smoking cessation: Yes 'Breaking Loose' booklet given: 12/24/19 - Substance & Tx. History Hx Alcohol Use: Yes Hx Substance Use: No Substance Use Type: Cocaine, Heroin, Marijuana, Opiates Hx Substance Use Treatment: Yes Admission Physical Exam BHS - Physical General Appearance: Yes: Mild Distress, Tremorous, Irritable, Sweating, Anxious HEENTM: Yes: EOMI, Hearing grossly Normal, Normal ENT Inspection, Normocephalic , Normal Voice, ISELA, Pharynx Normal, Tm's normal Respiratory: Yes: Chest Non-Tender, Lungs Clear, Normal Breath Sounds, No Respiratory Distress, No Accessory Muscle Use Neck: Yes: No masses,lesions,Nodules, Supple, Trachea in good position Breast: Yes: Within Normal Limits Cardiology: Yes: Regular Rhythm, Regular Rate, S1, S2 Abdominal: Yes: Normal Bowel Sounds, Non Tender, Flat, Soft Genitourinary: Yes: Within Normal Limits Back: Yes: Normal Inspection Musculoskeletal: Yes: full range of Motion, Gait Steady, Pelvis Stable Extremities: Yes: Normal Capillary Refill, Normal Inspection, Normal Range of Motion, Non-Tender, Other (track waters left arm) Neurological: Yes: soup person II-XII NML intact, Fully Oriented, Alert, Motor Strength 5/5, Normal Mood/Affect, Normal Response Integumentary: Yes: Normal Color, Warm Lymphatic: Yes: Within Normal Limits - Diagnostic (1) Alcohol dependence with uncomplicated withdrawal Current Visit: Yes Status: Acute (2) Cannabis dependence, uncomplicated Current Visit: Yes Status: Acute (3) Insomnia Current Visit: Yes Status: Acute (4) Nicotine dependence Current Visit: Yes Status: Acute Qualifiers: Nicotine product type: cigarettes Substance use status: in withdrawal Qualified Code(s): F17.213 - Nicotine dependence, cigarettes, with withdrawal (5) Opioid dependence on agonist therapy Current Visit: Yes Status: Acute (6) Bipolar 1 disorder Current Visit: Yes Status: Chronic (7) Cannabis abuse Current Visit: Yes Status: Chronic (8) Cocaine abuse Current Visit: Yes Status: Chronic Screened but not Admitted - Documentation of Visit Screened but not Admitted: No Inpatient Rehab Admission - Rehab Decision to Admit Inpatient rehab admission?: No
[2019-12-24] MEDS ORDERED: MAG HYDROX/AL HYDROX/SIMETH 30 ML UNIT-DOSE CUP PO PRN (10:50)
[2019-12-24] MEDS ORDERED: IBUPROFEN 400 MG TABLET (FP) PO PRN (10:50)
[2019-12-24] MEDS ORDERED: MAGNESIUM CITRATE 300 ML BOTTLE PO PRN (10:50)
[2019-12-24] MEDS ORDERED: BISMUTH SUBSALICYLATE 262 MG/15 ML BTL PO PRN (10:50)
[2019-12-24] MEDS ORDERED: MELATONIN 5 MG TABLETS PO PRN (10:50)
[2019-12-24] MEDS ORDERED: ACETAMINOPHEN 325 MG TABLET (FP) PO PRN ×2 (10:50)
[2019-12-24] MEDS ORDERED: MAGNESIUM HYDROX 2400MG/30ML ORAL SUSPENSION 30 ML CUP PO PRN (10:50)
[2019-12-24] MEDS ORDERED: LORazepam 1 MG TABLET PO PRN (10:50)
[2019-12-24] MEDS ORDERED: hydrOXYzine PAMOATE 25 MG CAPSULE (FP) PO PRN (10:50)
[2019-12-24] MEDS ORDERED: METHOCARBAMOL 500 MG TABLET PO PRN (10:50)
[2019-12-24] MEDS ORDERED: MENTHOL/PHENOL 1 EACH UD MM PRN (10:50)
[2019-12-24] MEDS ORDERED: ALBUTEROL SO4 HFA INHALER IH PRN (10:54)
[2019-12-24 11:20] VITALS: BMI 25.0
[2019-12-24] MEDS ORDERED: NICOTINE 7 MG/24 HOURS TOPICAL PATCH TD SCH (12:05)
[2019-12-24] MEDS: LORazepam 2 MG TABLET PO SCH ×3 (12:12→22:08)
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
[2019-12-24] MEDS ORDERED: hydrOXYzine PAMOATE 50 MG CAPSULE (FP) PO PRN (14:34)
[2019-12-24 16:27] LABS: HEMATOCRIT 45.8 % (35.4-49); HEMOGLOBIN 15.3 GM/dL (11.7-16.9); MCHC 33.4 g/dl (32.0-35.9); MEAN CELL VOLUME 98.9 fl (80-96); MEAN PLT VOLUME 10.5 fl (7.5-11.1); PLATELET COUNT 248 K/MM3 (134-434); RBC 4.63 M/mm3 (4.00-5.60); RDW 13.7 % (11.9-15.9); WHITE BLOOD COUNT 10.3 K/mm3 (4.0-10.0)
[2019-12-24 17:00] LABS: ALBUMIN 3.9 g/dl (3.4-5.0); BILIRUBIN,TOTAL 0.6 mg/dL (0.2-1); BLOOD UREA NITROGEN 14.6 mg/dL (7-18); CALCIUM 9.1 mg/dL (8.5-10.1); CREATININE 0.9 mg/dL (0.55-1.3); POTASSIUM 4.6 mmol/L (3.5-5.1); TOT PROT 7.4 g/dl (6.4-8.2)
[2019-12-24] MEDS ORDERED: QUEtiapine FUMARATE 100 MG TABLET (FP) PO SCH (22:00)
[2019-12-24] MEDS ORDERED: THIAMINE HCL 100 MG TABLET (FP) PO SCH (22:00)
[2019-12-25] MEDS ORDERED: METHADONE HCL 40 MG DISPERSABLE TABLET ONE (04:38)
[2019-12-25] MEDS ORDERED: METHADONE HCL 10 MG TABLET ONE (04:38)
[2019-12-25] MEDS: LORazepam 2 MG TABLET PO SCH (05:57)
[2019-12-25] MEDS ORDERED: METHADONE 80 MG, METHADONE 20 MG PO SCH (06:00)
[2019-12-25] MEDS ORDERED: METHADONE HCL 10 MG TABLET PO SCH (06:00)
[2019-12-25 08:40] VITALS: BP 113/60; PULSE 58; TEMP 97.3
--- NOTE | 2019-12-25 08:56 | PN ---
[facility] Progress Note Note: pt approached senior technical writer he wants to leave. pt was offered prn and or other meds to assist with his anxiety but pt insisted that he rather go home and take care of himself. Pt was told about relapse, seizures, DTs, OD and or loss. Pt refused to continue conversation and walked away. pt chose to sign out AMA.
--- NOTE | 2019-12-25 09:08 | DS ---
[facility] Detox Discharge Summary Admission Date: 12/24/19 - History Present History: Alcohol Dependence, Cannabis Dependence, Cocaine Dependence, MMTP - Physical Exam Results Vital Signs: Vital Signs Temperature 97.3 F L 12/25/19 08:39 Pulse Rate 58 L 12/25/19 08:39 Respiratory Rate 18 12/25/19 08:39 Blood Pressure 113/60 12/25/19 08:39 O2 Sat by Pulse Oximetry (%) Pertinent Admission Physical Exam Findings: Vital Signs Temperature 97.3 F L 12/25/19 08:39 Pulse Rate 58 L 12/25/19 08:39 Respiratory Rate 18 12/25/19 08:39 Blood Pressure 113/60 12/25/19 08:39 O2 Sat by Pulse Oximetry (%) Laboratory Tests 12/24/19 12/24/19 12/24/19 11:15 11:15 11:15 WBC 10.3 H RBC 4.63 Hgb 15.3 Hct 45.8 MCV 98.9 H MCH 33.0 MCHC 33.4 RDW 13.7 Plt Count 248 MPV 10.5 Sodium 141 Potassium 4.6 Chloride 107 Carbon Dioxide 30 Anion Gap 4 L BUN 14.6 Creatinine 0.9 Est GFR (CKD-EPI)AfAm 125.13 Est GFR (CKD-EPI)NonAf 107.97 Random Glucose 73 L Calcium 9.1 Total Bilirubin 0.6 AST 56 H ALT 80 H Alkaline Phosphatase 69 Total Protein 7.4 Albumin 3.9 RPR Titer Nonreactive HIV 1&2 Antibody Screen HIV P24 Antigen 12/24/19 11:45 WBC RBC Hgb Hct MCV MCH MCHC RDW Plt Count MPV Sodium Potassium Chloride Carbon Dioxide Anion Gap BUN Creatinine Est GFR (CKD-EPI)AfAm Est GFR (CKD-EPI)NonAf Random Glucose Calcium Total Bilirubin AST ALT Alkaline Phosphatase Total Protein Albumin RPR Titer HIV 1&2 Antibody Screen Negative HIV P24 Antigen Negative aaox3 ambulating no acute distress - Treatment Hospital Course: Rehab Referral Accepted - Medication Discharge Medications: Ambulatory Orders Methadone [Dolophine -] 100 mg PO DAILY 12/24/19 - Diagnosis (1) Alcohol dependence with uncomplicated withdrawal Current Visit: Yes Status: Chronic (2) Cannabis dependence, uncomplicated Current Visit: Yes Status: Chronic (3) Cocaine dependence Current Visit: Yes Status: Chronic Qualifiers: Substance use status: uncomplicated Qualified Code(s): F14.20 - Cocaine dependence, uncomplicated (4) Insomnia Current Visit: Yes Status: Acute (5) Substance induced mood disorder Current Visit: Yes Status: Acute (6) Substance-induced sleep disorder Current Visit: Yes Status: Acute (7) Asthma Current Visit: Yes Status: Chronic Qualifiers: Asthma severity: mild Asthma persistence: unspecified Asthma complication type: unspecified Qualified Code(s): J45.909 - Unspecified asthma , uncomplicated (8) Bipolar 1 disorder Current Visit: Yes Status: Chronic (9) Cannabis abuse Current Visit: Yes Status: Chronic (10) Cocaine abuse Current Visit: Yes Status: Chronic (11) Hepatitis C Current Visit: Yes Status: Chronic (12) Nicotine dependence Current Visit: Yes Status: Chronic Qualifiers: Nicotine product type: cigarettes Substance use status: uncomplicated Qualified Code(s): F17.210 - Nicotine dependence, cigarettes, uncomplicated (13) Opioid dependence on agonist therapy Current Visit: Yes Status: Chronic (14) Cocaine dependence, uncomplicated Current Visit: No Status: Acute (15) Opioid dependence Current Visit: No Status: Acute (16) Bipolar I, most recent episode depressed, severe Current Visit: No Status: Chronic (17) Hip pain, left Current Visit: No Status: Chronic (18) Methadone maintenance therapy patient Current Visit: Yes Status: Chronic - AMA Did Patient Leave Against Medical Advice: Yes
[2019-12-25] MEDS ORDERED: PRENATAL VITAMINS W/ FOLIC ACID TABLET (FP) PO SCH (10:00)
[2019-12-26] MEDS ORDERED: LORazepam 1 MG TABLET PO SCH (05:00)
[2019-12-27] MEDS ORDERED: LORazepam 0.5 MG TABLET PO PRN
[2019-12-27] MEDS ORDERED: LORazepam 0.5 MG TABLET PO SCH (05:00)
[2019-12-28] MEDS ORDERED: LORazepam 0.5 MG TABLET PO ONE (05:00)
== END 2019-12-25 09:10 | disposition left against medical advice (07) | DRG 894 ==
LOC: YASAS 10:07 → Y6N 11:38
PROVIDERS: ADMIT Allergy & Immunology; ATTEND Allergy & Immunology
PROC: HZ2ZZZZ Detoxification Services for Substance Abuse Treatment (ICD-10-PCS; principal; 2019-12-24)
DX: F10.230 Alcohol dependence with withdrawal, uncomplicated (principal); F11.20 Opioid dependence, uncomplicated; F19.282 Other psychoactive substance dependence with psychoactive substance-induced sleep disorder; F31.4 Bipolar disorder, current episode depressed, severe, without psychotic features; F12.20 Cannabis dependence, uncomplicated; F17.210 Nicotine dependence, cigarettes, uncomplicated; F19.24 Other psychoactive substance dependence with psychoactive substance-induced mood disorder; J45.909 Unspecified asthma, uncomplicated; G47.00 Insomnia, unspecified; B18.2 Chronic viral hepatitis C; M25.552 Pain in left hip; Z88.8 Allergy status to other drugs, medicaments and biological substances; Z62.810 Personal history of physical and sexual abuse in childhood; Z59.0 Homelessness
CPT/HCPCS: 36415; 80053; 85027; 86593; 87389

== ENCOUNTER 2020-05-27 13:09 | Inpatient (IN) | payer OTHER ==
--- NOTE | 2020-05-27 13:45 | BHS.RME ---
Substance Use & Tx History - Substance Use History Alcohol Substance amount: 4-5 20 oz Frequency of use: Daily Substance route: Oral Date of Last Use: 05/27/20 Heroin Substance amount: 1 bag Frequency of use: Daily Substance route: Injection (ex: intravenous or skin popping) Date of Last Use: 05/27/20 Benzodiazepines Substance amount: klonopin 2 mg Frequency of use: Daily Substance route: Oral Date of Last Use: 05/27/20 Physical/Psych/Mental Status - Behavior General Behavior: Increased activity (restlessness, agitation) Eye Contact: Normal - Cooperativeness Cooperativeness: Cooperative - Thinking Thought Processes: Tight, Logical, Goal Directed - Physical Health Problems Is patient presently having any pain?: No Does patient presently have any injuries (include location): No Does patient currently have a fever: No Is patient : No CIWA Nausea/Vomitin-Mild Nausea/No Vomiting Muscle Tremors: 2 Anxiety: 2 Agitation: 2 Paroxysmal Sweats: 1-Minimal Palms Moist Orientation: 1-Uncertain about Date Tacttile Disturbances: 0-None Auditory Disturbances: 0-None Visual Disturbances: 0-None Headache: 1-Very Mild CIWA-Ar Total Score: 10
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
[2020-05-27] MEDS ORDERED: NICOTINE POLACRILEX 2 MG GUM BUC PRN (15:39)
[2020-05-27] MEDS ORDERED: METHOCARBAMOL 500 MG TABLET PO PRN (15:39)
[2020-05-27] MEDS ORDERED: ACETAMINOPHEN 325 MG TABLET (FP) PO PRN ×2 (15:39)
[2020-05-27] MEDS ORDERED: MAGNESIUM HYDROX 2400MG/30ML ORAL SUSPENSION 30 ML CUP PO PRN (15:39)
[2020-05-27] MEDS ORDERED: MENTHOL/PHENOL 1 EACH UD MM PRN (15:39)
[2020-05-27] MEDS ORDERED: MAG HYDROX/AL HYDROX/SIMETH 30 ML UNIT-DOSE CUP PO PRN (15:39)
[2020-05-27] MEDS ORDERED: BISMUTH SUBSALICYLATE 524 MG/30 ML UD PO PRN (15:39)
[2020-05-27] MEDS ORDERED: NICOTINE 7 MG/24 HOURS TOPICAL PATCH TD SCH (15:45)
[2020-05-27] MEDS ORDERED: chlordiazePOXIDE HCL 25 MG CAPSULE PO PRN (15:47)
[2020-05-27 16:25] VITALS: BMI 23.4
[2020-05-27] MEDS ORDERED: MAGNESIUM CITRATE 300 ML BOTTLE PO PRN (17:00)
[2020-05-27] MEDS ORDERED: ONDANSETRON *ODT* 4 MG TABLET SL ONE (17:00)
[2020-05-27] MEDS: chlordiazePOXIDE HCL 25 MG CAPSULE PO SCH ×2 (18:09→22:27)
[2020-05-27] MEDS: NICOTINE 21 MG/24 HOURS TOPICAL PATCH TD SCH (18:09)
[2020-05-27] MEDS: PRENATAL VITAMINS W/ FOLIC ACID TABLET (FP) PO SCH (18:10)
[2020-05-27] MEDS: hydrOXYzine PAMOATE 25 MG CAPSULE (FP) PO SCH ×2 (19:14→22:26)
[2020-05-27] MEDS: THIAMINE HCL 100 MG TABLET (FP) PO SCH (22:26)
[2020-05-27] MEDS: MELATONIN 5 MG TABLETS PO SCH (22:27)
[2020-05-28] MEDS: hydrOXYzine PAMOATE 25 MG CAPSULE (FP) PO SCH ×5 (05:13→22:07)
[2020-05-28] MEDS: chlordiazePOXIDE HCL 25 MG CAPSULE PO SCH ×4 (05:13→22:06)
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
[2020-05-28] MEDS: NICOTINE 21 MG/24 HOURS TOPICAL PATCH TD SCH (10:24)
[2020-05-28] MEDS: PRENATAL VITAMINS W/ FOLIC ACID TABLET (FP) PO SCH (10:24)
[2020-05-28] MEDS: METHADONE HCL 40 MG DISPERSABLE TABLET PO SCH (10:25)
[2020-05-28] MEDS: BACITRACIN 0.9 GM PACKET TP SCH (11:07)
[2020-05-28 11:44] LABS: HEMATOCRIT 40.1 % (35.4-49); HEMOGLOBIN 13.1 GM/dL (11.7-16.9); MCHC 32.7 g/dl (32.0-35.9); MEAN PLT VOLUME 10.2 fl (7.5-11.1); PLATELET COUNT 255 K/MM3 (134-434); RBC 4.09 M/mm3 (4.00-5.60); RDW 14.4 % (11.9-15.9); WHITE BLOOD COUNT 9.3 K/mm3 (4.0-10.0)
[2020-05-28 12:13] LABS: ALBUMIN 3.6 g/dl (3.4-5.0); BILIRUBIN,TOTAL 0.4 mg/dL (0.2-1); BLOOD UREA NITROGEN 18.8 mg/dL (7-18); CALCIUM 9.2 mg/dL (8.5-10.1); CREATININE 0.8 mg/dL (0.55-1.3); POTASSIUM 4.4 mmol/L (3.5-5.1); TOT PROT 6.6 g/dl (6.4-8.2)
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
[2020-05-28] MEDS: THIAMINE HCL 100 MG TABLET (FP) PO SCH (22:07)
[2020-05-28] MEDS: MELATONIN 5 MG TABLETS PO SCH (22:07)
[2020-05-28] MEDS: QUEtiapine FUMARATE 50 MG TABLET PO SCH (22:08)
[2020-05-29] MEDS ORDERED: chlordiazePOXIDE HCL 25 MG CAPSULE PO SCH (05:00)
[2020-05-29] MEDS: METHADONE HCL 40 MG DISPERSABLE TABLET PO SCH (05:40)
[2020-05-29] MEDS: hydrOXYzine PAMOATE 25 MG CAPSULE (FP) PO SCH ×5 (05:49→22:14)
[2020-05-29] MEDS ORDERED: LORazepam 1 MG TABLET PO PRN (08:23)
[2020-05-29] MEDS: LORazepam 1 MG TABLET PO SCH ×3 (10:44→22:18)
[2020-05-29] MEDS: PRENATAL VITAMINS W/ FOLIC ACID TABLET (FP) PO SCH (10:44)
[2020-05-29] MEDS: NICOTINE 21 MG/24 HOURS TOPICAL PATCH TD SCH (10:45)
[2020-05-29] MEDS: BACITRACIN 0.9 GM PACKET TP SCH (10:45)
[2020-05-29] MEDS ORDERED: LORazepam 2 MG TABLET PO SCH (11:00)
--- NOTE | 2020-05-29 11:25 | PN ---
S CIWA - CIWA Score Nausea/Vomitin-No Nausea/No Vomiting Muscle Tremors: None Anxiety: 3 Agitation: 0-Normal Activity Paroxysmal Sweats: 3 Orientation: 0-Oriented Tacttile Disturbances: 0-None Auditory Disturbances: 0-None Visual Disturbances: 0-None Headache: 2-Mild CIWA-Ar Total Score: 8 BHS Progress Note (SOAP) Subjective: c/o sweats, anxiety, and headache. Objective: 05/29/20 11:26 Vital Signs 05/29/20 05/29/20 05/29/20 05:40 06:30 08:55 Temperature 97.7 F 97.1 F L Pulse Rate 64 55 L Respiratory 16 18 18 Rate Blood Pressure 109/69 133/87 O2 Sat by Pulse 100 Oximetry (%) Laboratory Last Values WBC 9.3 K/mm3 (4.0-10.0) 05/28/20 07:30 RBC 4.09 M/mm3 (4.00-5.60) 05/28/20 07:30 Hgb 13.1 GM/dL (11.7-16.9) 05/28/20 07:30 Hct 40.1 % (35.4-49) 05/28/20 07:30 MCV 98.0 fl (80-96) H 05/28/20 07:30 MCH 32.0 pg (25.7-33.7) 05/28/20 07:30 MCHC 32.7 g/dl (32.0-35.9) 05/28/20 07:30 RDW 14.4 % (11.9-15.9) 05/28/20 07:30 Plt Count 255 K/MM3 (134-434) 05/28/20 07:30 MPV 10.2 fl (7.5-11.1) 05/28/20 07:30 Sodium 140 mmol/L (136-145) 05/28/20 07:30 Potassium 4.4 mmol/L (3.5-5.1) 05/28/20 07:30 Chloride 108 mmol/L (98-107) H 05/28/20 07:30 Carbon Dioxide 31 mmol/L (21-32) 05/28/20 07:30 Anion Gap 2 MMOL/L (8-16) L 05/28/20 07:30 BUN 18.8 mg/dL (7-18) H 05/28/20 07:30 Creatinine 0.8 mg/dL (0.55-1.3) 05/28/20 07:30 Est GFR (CKD-EPI)AfAm 131.34 05/28/20 07:30 Est GFR (CKD-EPI)NonAf 113.32 05/28/20 07:30 Random Glucose 75 mg/dL (74-106) 05/28/20 07:30 Calcium 9.2 mg/dL (8.5-10.1) 05/28/20 07:30 Total Bilirubin 0.4 mg/dL (0.2-1) 05/28/20 07:30 AST 239 U/L (15-37) H 05/28/20 07:30 ALT 232 U/L (13-61) H 05/28/20 07:30 Alkaline Phosphatase 55 U/L (45-117) 05/28/20 07:30 Total Protein 6.6 g/dl (6.4-8.2) 05/28/20 07:30 Albumin 3.6 g/dl (3.4-5.0) 05/28/20 07:30 Syphilis Serology Non-reactive (NONREACTIVE) 05/28/20 07:30 HIV Ag/Ab Combo Qual Negative (NEGATIVE) 05/28/20 07:30 Labs noted with elevated AST/ALT. Assessment: 05/29/20 11:26 AOX3, in no acute respiratory distress. Full ROM, ambulating in the unit. Withdrawal symptoms. Elevated liver enzymes. Plan: continue detox. change Librium protocol to Ativan protocol.
[2020-05-29] MEDS: QUEtiapine FUMARATE 50 MG TABLET PO SCH (22:14)
[2020-05-29] MEDS: MELATONIN 5 MG TABLETS PO SCH (22:14)
[2020-05-29] MEDS: THIAMINE HCL 100 MG TABLET (FP) PO SCH (22:15)
[2020-05-30] MEDS ORDERED: chlordiazePOXIDE HCL 10 MG CAPSULE PO PRN
[2020-05-30] MEDS ORDERED: chlordiazePOXIDE HCL 10 MG CAPSULE PO SCH (05:00)
[2020-05-30] MEDS: hydrOXYzine PAMOATE 25 MG CAPSULE (FP) PO SCH ×5 (05:20→22:10)
[2020-05-30] MEDS: IBUPROFEN 400 MG TABLET (FP) PO PRN ×2 (05:20→16:50)
[2020-05-30] MEDS: LORazepam 1 MG TABLET PO SCH ×4 (05:20→22:10)
[2020-05-30] MEDS: METHADONE HCL 40 MG DISPERSABLE TABLET PO SCH (05:20)
[2020-05-30] MEDS: BACITRACIN 0.9 GM PACKET TP SCH (10:14)
[2020-05-30] MEDS: NICOTINE 21 MG/24 HOURS TOPICAL PATCH TD SCH (10:14)
[2020-05-30] MEDS: PRENATAL VITAMINS W/ FOLIC ACID TABLET (FP) PO SCH (10:14)
--- NOTE | 2020-05-30 10:20 | PN ---
[facility] CIWA - CIWA Score Nausea/Vomitin-Mild Nausea/No Vomiting Muscle Tremors: 1-None Visible, but [place] Anxiety: 1-Mildly Anxious Agitation: 0-Normal Activity Paroxysmal Sweats: No Perspiration Orientation: 0-Oriented Tacttile Disturbances: 1-Very Mild Itch/Numbness Auditory Disturbances: 0-None Visual Disturbances: 0-None Headache: 0-None Present CIWA-Ar Total Score: 4 BHS COWS - Scale Resting Pulse: 0= OR 80 or Below Sweatin= No chills or Flushing Restless Observation: 0= Sits Still Pupil Size: 0= Normal to Room Light Bone or Joint Aches: 1= Mild Discomfort Runny Nose/ Eye Tearin= None GI Upset > 30mins: 1= Stomach Cramp Tremor Observation of Outstretched Hands: 1= Tremor [place], Not Seen Yawning Observation: 0= None Anxiety or Irritability: 1=Feels Anxious/Irritable Goose Flesh Skin: 0=Smooth Skin COWS Score: 4 S Progress Note (SOAP) Subjective: 39 years old male admitted on 05/27/20 for alcohol and benzo withdrawal sx management treating with ativan detox regiment feeling better today prefers to go to rehab as soon as possible received methadone 120 mg po today will discuss possibility of revelation tomorrow with the counselor Objective: 05/30/20 10:19 Vital Signs - 24 hr 05/29/20 05/29/20 05/29/20 12:46 17:05 20:32 Temperature 97.1 F L 98.0 F 97.8 F Pulse Rate 58 L 69 68 Respiratory 18 18 18 Rate Blood Pressure 130/87 141/79 134/83 O2 Sat by Pulse 100 100 Oximetry (%) 05/30/20 05/30/20 05/30/20 00:30 05:15 08:36 Temperature 97.3 F L 96.8 F L Pulse Rate 66 60 Respiratory 18 18 18 Rate Blood Pressure 127/77 125/81 O2 Sat by Pulse 100 Oximetry (%) Laboratory Tests 05/27/20 05/28/20 05/28/20 16:30 07:30 07:30 WBC 9.3 RBC 4.09 Hgb 13.1 Hct 40.1 MCV 98.0 H MCH 32.0 MCHC 32.7 RDW 14.4 Plt Count 255 MPV 10.2 Sodium Potassium Chloride Carbon Dioxide Anion Gap BUN Creatinine Est GFR (CKD-EPI)AfAm Est GFR (CKD-EPI)NonAf Random Glucose Calcium Total Bilirubin AST ALT Alkaline Phosphatase Total Protein Albumin Syphilis Serology Non-reactive COVID-19 (TERRI) Not detected HIV Ag/Ab Combo Qual 05/28/20 05/28/20 07:30 07:30 WBC RBC Hgb Hct MCV MCH MCHC RDW Plt Count MPV Sodium 140 Potassium 4.4 Chloride 108 H Carbon Dioxide 31 Anion Gap 2 L BUN 18.8 H Creatinine 0.8 Est GFR (CKD-EPI)AfAm 131.34 Est GFR (CKD-EPI)NonAf 113.32 Random Glucose 75 Calcium 9.2 Total Bilirubin 0.4 AST 239 H ALT 232 H Alkaline Phosphatase 55 Total Protein 6.6 Albumin 3.6 Syphilis Serology COVID-19 (TERRI) HIV Ag/Ab Combo Qual Negative lab noted Assessment: 05/30/20 10:20 alcohol and benzo withdrawal Plan: ativan regiment
[2020-05-30] MEDS: MINERAL OIL/PETROLAT/WATER TOPICAL CREAM 113 GM JAR TP SCH ×2 (15:27→22:09)
[2020-05-30] MEDS: THIAMINE HCL 100 MG TABLET (FP) PO SCH (22:10)
[2020-05-30] MEDS: MELATONIN 5 MG TABLETS PO SCH (22:10)
[2020-05-30] MEDS: QUEtiapine FUMARATE 50 MG TABLET PO SCH (22:10)
[2020-05-31] MEDS ORDERED: chlordiazePOXIDE HCL 10 MG CAPSULE PO SCH (05:00)
[2020-05-31] MEDS: LORazepam 0.5 MG TABLET PO SCH ×4 (05:28→22:41)
[2020-05-31] MEDS: hydrOXYzine PAMOATE 25 MG CAPSULE (FP) PO SCH ×5 (05:28→22:41)
[2020-05-31] MEDS: METHADONE HCL 40 MG DISPERSABLE TABLET PO SCH (05:29)
[2020-05-31] MEDS: MINERAL OIL/PETROLAT/WATER TOPICAL CREAM 113 GM JAR TP SCH ×2 (10:05→22:42)
[2020-05-31] MEDS: NICOTINE 21 MG/24 HOURS TOPICAL PATCH TD SCH (10:05)
[2020-05-31] MEDS: BACITRACIN 0.9 GM PACKET TP SCH (10:06)
[2020-05-31] MEDS: PRENATAL VITAMINS W/ FOLIC ACID TABLET (FP) PO SCH (10:06)
--- NOTE | 2020-05-31 10:53 | PN ---
S CIWA - CIWA Score Nausea/Vomitin-No Nausea/No Vomiting Muscle Tremors: 1-None Visible, but [place] Anxiety: 1-Mildly Anxious Agitation: 0-Normal Activity Paroxysmal Sweats: No Perspiration Orientation: 0-Oriented Tacttile Disturbances: 0-None Auditory Disturbances: 0-None Visual Disturbances: 0-None Headache: 0-None Present CIWA-Ar Total Score: 2 [facility] Progress Note (SOAP) Subjective: 39 years old male admitted on 05/27/20 for alcohol and benzo withdrawal sx management treating with ativan detox regiment feeling better today prefers to go to rehab today if possible case discussed with intake staff that possible tomorrow revelation available Objective: 05/31/20 10:52 Vital Signs - 24 hr 05/30/20 05/30/20 05/30/20 12:38 16:37 20:29 Temperature 97.5 F L 97.1 F L 97.3 F L Pulse Rate 65 77 75 Respiratory 18 18 18 Rate Blood Pressure 115/75 121/72 145/75 O2 Sat by Pulse 100 100 Oximetry (%) 05/31/20 05/31/20 05/31/20 00:24 06:11 08:55 Temperature 97.7 F 96.8 F L Pulse Rate 72 67 Respiratory 18 18 18 Rate Blood Pressure 118/72 131/74 O2 Sat by Pulse 100 Oximetry (%) Laboratory Tests 05/27/20 05/28/20 05/28/20 16:30 07:30 07:30 WBC 9.3 RBC 4.09 Hgb 13.1 Hct 40.1 MCV 98.0 H MCH 32.0 MCHC 32.7 RDW 14.4 Plt Count 255 MPV 10.2 Sodium Potassium Chloride Carbon Dioxide Anion Gap BUN Creatinine Est GFR (CKD-EPI)AfAm Est GFR (CKD-EPI)NonAf Random Glucose Calcium Total Bilirubin AST ALT Alkaline Phosphatase Total Protein Albumin Syphilis Serology Non-reactive COVID-19 (TERRI) Not detected HIV Ag/Ab Combo Qual 05/28/20 05/28/20 07:30 07:30 WBC RBC Hgb Hct MCV MCH MCHC RDW Plt Count MPV Sodium 140 Potassium 4.4 Chloride 108 H Carbon Dioxide 31 Anion Gap 2 L BUN 18.8 H Creatinine 0.8 Est GFR (CKD-EPI)AfAm 131.34 Est GFR (CKD-EPI)NonAf 113.32 Random Glucose 75 Calcium 9.2 Total Bilirubin 0.4 AST 239 H ALT 232 H Alkaline Phosphatase 55 Total Protein 6.6 Albumin 3.6 Syphilis Serology COVID-19 (TERRI) HIV Ag/Ab Combo Qual Negative lab noted Assessment: 05/31/20 10:53 alcohol and benzo withdrawal Plan: ativan regiment
[2020-05-31] MEDS: THIAMINE HCL 100 MG TABLET (FP) PO SCH (22:41)
[2020-05-31] MEDS: MELATONIN 5 MG TABLETS PO SCH (22:41)
[2020-05-31] MEDS: QUEtiapine FUMARATE 50 MG TABLET PO SCH (22:42)
[2020-05-31] MEDS: IBUPROFEN 400 MG TABLET (FP) PO PRN (22:45)
[2020-06-01] MEDS ORDERED: LORazepam 0.5 MG TABLET PO PRN
[2020-06-01] MEDS ORDERED: chlordiazePOXIDE HCL 10 MG CAPSULE PO ONE (05:00)
[2020-06-01] MEDS ORDERED: LORazepam 0.5 MG TABLET PO ONE (05:00)
[2020-06-01] MEDS: hydrOXYzine PAMOATE 25 MG CAPSULE (FP) PO SCH ×2 (05:14→10:08)
[2020-06-01] MEDS: METHADONE HCL 40 MG DISPERSABLE TABLET PO SCH (05:14)
[2020-06-01 06:14] VITALS: TEMP 97.1
[2020-06-01 09:14] VITALS: BP 146/95; PULSE 79
[2020-06-01] MEDS: PRENATAL VITAMINS W/ FOLIC ACID TABLET (FP) PO SCH (10:07)
[2020-06-01] MEDS: NICOTINE 21 MG/24 HOURS TOPICAL PATCH TD SCH (10:07)
[2020-06-01] MEDS: BACITRACIN 0.9 GM PACKET TP SCH (10:07)
[2020-06-01] MEDS: MINERAL OIL/PETROLAT/WATER TOPICAL CREAM 113 GM JAR TP SCH (10:07)
--- NOTE | 2020-06-01 11:20 | DS ---
[facility] Detox Discharge Summary Admission Date: 05/27/20 Discharge Date: 06/01/20 - History Present History: Alcohol Dependence, Sedative Dependence Additional Comments: 39 years old male admitted on 05/27/20 for alcohol and benzo withdrawal sx management treated with ativan detox regiment seen by psychiatrist roxanna franks mr diehl has completed ativan detox regiment and is tolerated well alert oriented x 3 speech clearly coherently ambulating steady gaits cardiac s1s2 regular rate rhythm respiratory clear lung sounds bilaterally on auscultation extremities full range of motion Pertinent Past History: time for discharge 34 minutes - Physical Exam Results Vital Signs: Vital Signs Temperature 97.1 F L 06/01/20 08:36 Pulse Rate 79 06/01/20 08:36 Respiratory Rate 16 06/01/20 08:36 Blood Pressure 146/95 06/01/20 08:36 O2 Sat by Pulse Oximetry (%) 98 06/01/20 06:13 Pertinent Admission Physical Exam Findings: alcohol and benzo withdrawal Laboratory Tests 05/27/20 05/28/20 05/28/20 16:30 07:30 07:30 WBC 9.3 RBC 4.09 Hgb 13.1 Hct 40.1 MCV 98.0 H MCH 32.0 MCHC 32.7 RDW 14.4 Plt Count 255 MPV 10.2 Sodium Potassium Chloride Carbon Dioxide Anion Gap BUN Creatinine Est GFR (CKD-EPI)AfAm Est GFR (CKD-EPI)NonAf Random Glucose Calcium Total Bilirubin AST ALT Alkaline Phosphatase Total Protein Albumin Syphilis Serology Non-reactive COVID-19 (TERRI) Not detected HIV Ag/Ab Combo Qual 05/28/20 05/28/20 07:30 07:30 WBC RBC Hgb Hct MCV MCH MCHC RDW Plt Count MPV Sodium 140 Potassium 4.4 Chloride 108 H Carbon Dioxide 31 Anion Gap 2 L BUN 18.8 H Creatinine 0.8 Est GFR (CKD-EPI)AfAm 131.34 Est GFR (CKD-EPI)NonAf 113.32 Random Glucose 75 Calcium 9.2 Total Bilirubin 0.4 AST 239 H ALT 232 H Alkaline Phosphatase 55 Total Protein 6.6 Albumin 3.6 Syphilis Serology COVID-19 (TERRI) HIV Ag/Ab Combo Qual Negative lab noted repeat ast - Treatment Hospital Course: Detox Protocol Followed, Detoxed Safely, Responded well, Discharged Condition Good, Rehab Referral Accepted Patient has Accepted a Rehab Referral to: [facility] - Medication Discharge Medications: Ambulatory Orders Methadone [Dolophine -] 120 mg PO DAILY 12/24/19 - Diagnosis (1) Sedative, hypnotic or anxiolytic abuse, uncomplicated Status: Acute (2) Alcohol dependence with uncomplicated withdrawal Status: Acute (3) Asthma Status: Chronic Qualifiers: Asthma severity: mild Asthma persistence: intermittent Asthma complication type: with status asthmaticus Qualified Code(s): J45.22 - Mild in termittent asthma with status asthmaticus (4) Hepatitis C Status: Chronic Qualifiers: Viral hepatitis chronicity: carrier Qualified Code(s): B18.2 - Chronic viral hepatitis C (5) Methadone maintenance therapy patient Status: Chronic (6) Nicotine dependence Status: Acute Qualifiers: Nicotine product type: cigarettes Substance use status: in withdrawal Qualified Code(s): F17.213 - Nicotine dependence, cigarettes, with withdrawal (7) Substance induced mood disorder Status: Suspected - AMA Did Patient Leave Against Medical Advice: No CIWA Score - CIWA Score Nausea/Vomitin-No Nausea/No Vomiting Muscle Tremors: 1-None Visible, but [place] Anxiety: 0-No Anxiety, at Ease Agitation: 0-Normal Activity Paroxysmal Sweats: No Perspiration Orientation: 0-Oriented Tacttile Disturbances: 0-None Auditory Disturbances: 0-None Visual Disturbances: 0-None Headache: 0-None Present CIWA-Ar Total Score: 1
== END 2020-06-01 10:40 | disposition other institution (70) | DRG 897 ==
LOC: YASAS 13:09 → Y3N 16:29
PROVIDERS: ADMIT Allergy & Immunology; ATTEND Allergy & Immunology
PROC: HZ2ZZZZ Detoxification Services for Substance Abuse Treatment (ICD-10-PCS; principal; 2020-05-27)
DX: F10.230 Alcohol dependence with withdrawal, uncomplicated (principal); F14.20 Cocaine dependence, uncomplicated; F11.23 Opioid dependence with withdrawal; F13.230 Sedative, hypnotic or anxiolytic dependence with withdrawal, uncomplicated; F12.20 Cannabis dependence, uncomplicated; F17.210 Nicotine dependence, cigarettes, uncomplicated; F19.24 Other psychoactive substance dependence with psychoactive substance-induced mood disorder; F41.9 Anxiety disorder, unspecified; F31.9 Bipolar disorder, unspecified; J45.909 Unspecified asthma, uncomplicated; N18.2 Chronic kidney disease, stage 2 (mild); G47.00 Insomnia, unspecified; R74.0 Nonspecific elevation of levels of transaminase and lactic acid dehydrogenase [LDH]; M25.552 Pain in left hip; Z88.8 Allergy status to other drugs, medicaments and biological substances; Z91.018 Allergy to other foods
CPT/HCPCS: 36415; 80053; 85027; 86780; 87389; Q0162; U0003

== ENCOUNTER 2020-06-01 10:47 | Inpatient (IN) | payer OTHER ==
[2020-06-01] MEDS ORDERED: ACETAMINOPHEN 325 MG TABLET (FP) PO PRN (11:25)
[2020-06-01] MEDS ORDERED: guaiFENesin 200 MG/10 ML 10 ML UNIT-DOSE CUPS PO PRN (11:25)
[2020-06-01] MEDS ORDERED: P-EPHED 60MG/TRIPROLIDI 2.5MG TABLET PO PRN (11:25)
[2020-06-01] MEDS ORDERED: NICOTINE POLACRILEX 4 MG GUM BUC PRN (11:25)
[2020-06-01] MEDS ORDERED: MAGNESIUM HYDROX 2400MG/30ML ORAL SUSPENSION 30 ML CUP PO PRN (11:25)
[2020-06-01] MEDS ORDERED: MAGNESIUM CITRATE 300 ML BOTTLE PO PRN (11:25)
[2020-06-01] MEDS ORDERED: MAG HYDROX/AL HYDROX/SIMETH 30 ML UNIT-DOSE CUP PO PRN (11:25)
[2020-06-01] MEDS ORDERED: LOPERAMIDE HCL 2 MG CAPSULE PO PRN (11:25)
--- NOTE | 2020-06-01 11:25 | HP ---
[facility] Re[facility] Assess/Revision - Admission History Admitted to Rehab from: [facility] Date of Admission to Rehab: 06/01/20 - Vital signs Vital Signs: Vital Signs Period Temp Pulse Resp BP Sys/Sears Pulse Ox Last 24 Hr 98.7 F 73 18 137/91 - Findings Detox History & Physical reviewed: Yes Concur with findings: Yes Comments/Additional Findings: transferred from detox to rehab admission as per protocol Inpatient Rehab Admission - Rehab Decision to Admit Inpatient rehab admission?: Yes - Initial Determination Are CD services needed?: Yes Free of communicable disease: Yes Not in need of hospitalization: Yes - Rehab Admission Criteria Previous failed treatment: Yes Poor recovery environment: Yes Comorbidities: Yes Lacks judgement: Yes Patient is meeting Inpatient Rehab admission criteria:: Yes
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
[2020-06-01] MEDS: BACITRACIN 0.9 GM PACKET TP SCH ×2 (14:18→21:11)
[2020-06-01] MEDS: MELATONIN 5 MG TABLETS PO SCH (21:11)
[2020-06-01] MEDS: QUEtiapine FUMARATE 50 MG TABLET PO SCH (21:11)
[2020-06-01] MEDS: THIAMINE HCL 100 MG TABLET (FP) PO SCH (21:11)
[2020-06-01] MEDS: MINERAL OIL/PETROLAT/WATER TOPICAL CREAM 113 GM JAR TP SCH (21:11)
[2020-06-01] MEDS ORDERED: MELATONIN 5 MG TABLETS PO SCH (22:00)
[2020-06-02] MEDS: hydrOXYzine PAMOATE 25 MG CAPSULE (FP) PO PRN ×3 (02:22→14:52)
[2020-06-02] MEDS: BACITRACIN 0.9 GM PACKET TP SCH ×3 (06:03→21:07)
[2020-06-02] MEDS: METHADONE HCL 40 MG DISPERSABLE TABLET PO SCH (06:04)
[2020-06-02] MEDS: ARIPiprazole 5 MG TABLET PO SCH (10:06)
[2020-06-02] MEDS: NICOTINE 21 MG/24 HOURS TOPICAL PATCH TD SCH (10:06)
[2020-06-02] MEDS: PRENATAL VITAMINS W/ FOLIC ACID TABLET (FP) PO SCH (10:06)
[2020-06-02] MEDS: MINERAL OIL/PETROLAT/WATER TOPICAL CREAM 113 GM JAR TP SCH ×2 (10:07→21:08)
[2020-06-02 11:28] LABS: SGOT/AST 148 U/L (15-37)
[2020-06-02] MEDS: IBUPROFEN 400 MG TABLET (FP) PO PRN (15:35)
[2020-06-02 17:58] LABS: SGPT/ALT 280 U/L (13-61)
[2020-06-02] MEDS: MELATONIN 5 MG TABLETS PO SCH (21:07)
[2020-06-02] MEDS: QUEtiapine FUMARATE 50 MG TABLET PO SCH (21:07)
[2020-06-02] MEDS: THIAMINE HCL 100 MG TABLET (FP) PO SCH (21:07)
[2020-06-03] MEDS: BACITRACIN 0.9 GM PACKET TP SCH ×3 (05:50→21:55)
[2020-06-03] MEDS: METHADONE HCL 40 MG DISPERSABLE TABLET PO SCH (05:51)
[2020-06-03] MEDS: hydrOXYzine PAMOATE 25 MG CAPSULE (FP) PO PRN ×2 (06:32→10:27)
[2020-06-03] MEDS: ARIPiprazole 5 MG TABLET PO SCH (10:27)
[2020-06-03] MEDS: NICOTINE 21 MG/24 HOURS TOPICAL PATCH TD SCH (10:27)
[2020-06-03] MEDS: PRENATAL VITAMINS W/ FOLIC ACID TABLET (FP) PO SCH (10:27)
[2020-06-03] MEDS: MINERAL OIL/PETROLAT/WATER TOPICAL CREAM 113 GM JAR TP SCH ×2 (10:28→21:55)
[2020-06-03] MEDS: IBUPROFEN 400 MG TABLET (FP) PO PRN (17:59)
[2020-06-03] MEDS: MELATONIN 5 MG TABLETS PO SCH (21:54)
[2020-06-03] MEDS: QUEtiapine FUMARATE 50 MG TABLET PO SCH (21:55)
[2020-06-03] MEDS: THIAMINE HCL 100 MG TABLET (FP) PO SCH (21:55)
[2020-06-03] MEDS ORDERED: PT OWN MED DRAWER 7, Y5N ONE (22:06)
[2020-06-04] MEDS: BACITRACIN 0.9 GM PACKET TP SCH ×2 (05:58→14:16)
[2020-06-04] MEDS: METHADONE HCL 40 MG DISPERSABLE TABLET PO SCH (05:58)
[2020-06-04 06:38] VITALS: BP 144/85; PULSE 72; TEMP 97.5
[2020-06-04] MEDS: hydrOXYzine PAMOATE 25 MG CAPSULE (FP) PO PRN (10:06)
[2020-06-04] MEDS: PRENATAL VITAMINS W/ FOLIC ACID TABLET (FP) PO SCH (10:06)
[2020-06-04] MEDS: NICOTINE 21 MG/24 HOURS TOPICAL PATCH TD SCH (10:06)
[2020-06-04] MEDS: ARIPiprazole 5 MG TABLET PO SCH (10:06)
[2020-06-04] MEDS: MINERAL OIL/PETROLAT/WATER TOPICAL CREAM 113 GM JAR TP SCH (10:07)
--- NOTE | 2020-06-04 12:35 | PN ---
[facility] Progress Note Note: PATIENT EVALUATED FOR C/O POOR APPETITE. PATIENT STATES INTAKE OF 1 AND 1/2 MEALS DAILY. STATES HE FORCES HIMSELF TO EAT BUT HAS NO APPETITE. HE DENIES N/V/D, CONSTIPATION AND WEIGHT LOSS. Laboratory Tests 06/02/20 06/02/20 07:10 07:55 AST 148 H ALT 280 H Cancelled Vital Signs Temperature 97.5 F L 06/04/20 06:37 Pulse Rate 72 06/04/20 06:37 Respiratory Rate 18 06/04/20 06:37 Blood Pressure 144/85 06/04/20 06:37 O2 Sat by Pulse Oximetry (%) 98 06/04/20 06:37 PE ALERT AND ORIENTED X 3 SKIN WARM AND DRY CAR S1S2, RRR RESP CTA BL, NO RALES, RHONCHI EXT FULL ROM, AMB AD JUAN PABLO NO TREMORS A/P: POOR APPETITE WILL TREAT WITH PERIACTIN 4MG TID AC ENSURE SUPPLEMENT CONTINUED MONITOR CLINICALLY
[2020-06-04] MEDS ORDERED: CYPROHEPTADINE HCL 4 MG TABLET PO SCH (16:30)
--- NOTE | 2020-06-04 18:09 | PN ---
[facility] Progress Note Note: Patient states leaving because is upset and doesn't want to get into a confrontation. States feeling more stable. Denies withdrawal symptoms. States has a family support network. Assess: Alert and oriented x 3. Gait steady. No tremors. Lungs CTA. Pulse Ox = 99 % Abd soft/NT/BS+ 06/04/20 06:37 Temperature 97.5 F L Pulse Rate 72 Respiratory 18 Rate Blood Pressure 144/85 O2 Sat by Pulse 98 Oximetry (%) Plan: Discussed the effects of nicotine use on illicit substance use. Declines NRT. Encouraged decreased smoking w/ goal toward cessation. [facility] will return to [facility] methadone program in a.m. Client is aware program closes early on Saturdays. Discussed risks of overdose, including loss of tolerance. Discussed overdose prevention. Has a Narcan kit at home. Encouraged f/u w/ PCP for routine HCM. Discharged order written.
--- NOTE | 2020-06-04 18:13 | DS ---
[facility] Rehab Discharge Summary - [facility] Rehab Discharge Summary Admission Date: 06/01/20 Discharge Date: 06/05/20 - History Present History: Alcohol dependence, MMTP, Opioid dependence, Sedative dependence (Klonopin) Additional Comments: Nicotine use disorder Pertinent Past History: PMHx: Asthma - no recent exacerbation. Hepatitis C MHHx: Bipolar, Anxiety and Depression - Discharge Physical Exam Vital Signs: Vital Signs Temperature 97.5 F L 06/04/20 06:37 Pulse Rate 72 06/04/20 06:37 Respiratory Rate 18 06/04/20 06:37 Blood Pressure 144/85 06/04/20 06:37 O2 Sat by Pulse Oximetry (%) 98 06/04/20 16:03 Pertinent Admission Physical Exam Findings: Admitted with early alcohol and benzo remission. On methadone maintenance for opioid use disorder. - Treatment Discharge Condition: Discharge condition good - Medication Discharge Medications: Ambulatory Orders Methadone [Dolophine -] 120 mg PO DAILY 12/24/19 - Medication-Assisted Treatment (MAT) Medication-Assisted Treatment (MAT): Yes MAT Follow-up Referral: Patient will return to [facility] - Discharge Instructions Diet, activity, other medical instructions: Diet: Reg Activity: Ad cora Other medical instructions: Encourage f/u w/ PCP for roiutine HCM. Encourage f/u with community mental health provider. - Diagnosis (1) Alcohol use disorder, moderate, in early remission Status: Acute (2) Sedative, hypnotic or anxiolytic use disorder, mild, in early remission Status: Acute (3) Methadone maintenance therapy patient Status: Chronic (4) Hepatitis C Status: Chronic Qualifiers: Viral hepatitis chronicity: unspecified Hepatic coma status: without hepatic coma Qualified Code(s): B19.20 - Unspecified viral hepatitis C without hepatic coma (5) History of bipolar disorder Status: Chronic (6) Nicotine dependence Status: Chronic Qualifiers: Nicotine product type: cigarettes Substance use status: uncomplicated Qualified Code(s): F17.210 - Nicotine dependence, cigarettes, uncomplicated (7) History of asthma Status: Suspected - Follow-up Referral Minutes to complete discharge: 30 - AMA Did Patient Leave Against Medical Advice: No
== END 2020-06-04 18:45 | disposition home or self-care (01) | DRG 895 ==
LOC: YASAS 10:47 → Y3W 10:48
PROVIDERS: ADMIT Allergy & Immunology; ATTEND Allergy & Immunology
PROC: HZ42ZZZ Group Counseling for Substance Abuse Treatment, Cognitive-Behavioral (ICD-10-PCS; principal; 2020-06-01)
DX: F10.20 Alcohol dependence, uncomplicated (principal); F11.20 Opioid dependence, uncomplicated; F13.20 Sedative, hypnotic or anxiolytic dependence, uncomplicated; F19.282 Other psychoactive substance dependence with psychoactive substance-induced sleep disorder; F17.210 Nicotine dependence, cigarettes, uncomplicated; F31.9 Bipolar disorder, unspecified; F41.8 Other specified anxiety disorders; J45.909 Unspecified asthma, uncomplicated; B18.2 Chronic viral hepatitis C; M25.552 Pain in left hip; Z62.810 Personal history of physical and sexual abuse in childhood; K43.9 Ventral hernia without obstruction or gangrene; Z88.8 Allergy status to other drugs, medicaments and biological substances
CPT/HCPCS: 36415; 84450; 84460

== ENCOUNTER 2020-11-02 11:47 | Inpatient (IN) | payer OTHER ==
[2020-11-02] MEDS ORDERED: IBUPROFEN 400 MG TABLET (FP) PO PRN (13:15)
[2020-11-02] MEDS ORDERED: MAGNESIUM CITRATE 300 ML BOTTLE PO PRN (13:15)
[2020-11-02] MEDS ORDERED: BISMUTH SUBSALICYLATE 524 MG/30 ML UD PO PRN (13:15)
[2020-11-02] MEDS ORDERED: ONDANSETRON *ODT* 4 MG TABLET SL PRN (13:15)
[2020-11-02] MEDS ORDERED: ACETAMINOPHEN 325 MG TABLET (FP) PO PRN ×2 (13:15)
[2020-11-02] MEDS ORDERED: LORazepam 1 MG TABLET PO PRN (13:15)
[2020-11-02] MEDS ORDERED: MENTHOL/PHENOL 1 EACH UD MM PRN (13:15)
[2020-11-02] MEDS ORDERED: NICOTINE POLACRILEX 2 MG GUM BUC PRN (13:15)
[2020-11-02] MEDS ORDERED: MAG HYDROX/AL HYDROX/SIMETH 30 ML UNIT-DOSE CUP PO PRN (13:15)
[2020-11-02] MEDS ORDERED: MAGNESIUM HYDROX 2400MG/30ML ORAL SUSPENSION 30 ML CUP PO PRN (13:15)
[2020-11-02] MEDS ORDERED: LISINOPRIL 10 MG TABLET ONE (13:36)
[2020-11-02 13:41] VITALS: BMI 26.9
[2020-11-02] MEDS ORDERED: LISINOPRIL 10 MG TABLET PO ONE (13:45)
[2020-11-02] MEDS: METHOCARBAMOL 500 MG TABLET PO PRN (14:52)
[2020-11-02] MEDS: hydrOXYzine PAMOATE 25 MG CAPSULE (FP) PO SCH ×3 (14:52→22:26)
[2020-11-02] MEDS: NICOTINE 21 MG/24 HOURS TOPICAL PATCH TD SCH (14:52)
[2020-11-02] MEDS ORDERED: cloNIDine HCL 0.1 MG TABLET PO ONE (14:55)
[2020-11-02 16:39] LABS: HEMATOCRIT 43.4 % (35.4-49); HEMOGLOBIN 14.2 GM/dL (11.7-16.9); MCH 32.2 pg (25.7-33.7); MCHC 32.8 g/dl (32.0-35.9); MEAN CELL VOLUME 98.3 fl (80-96); MEAN PLT VOLUME 10.2 fl (7.5-11.1); PLATELET COUNT 274 K/MM3 (134-434); RBC 4.42 M/mm3 (4.00-5.60); RDW 13.3 % (11.9-15.9); WHITE BLOOD COUNT 8.9 K/mm3 (4.0-10.0)
[2020-11-02 16:42] LABS: POTASSIUM 4.3 mmol/L (3.5-5.1)
[2020-11-02 16:45] LABS: ALBUMIN 4.2 g/dl (3.4-5.0); BLOOD UREA NITROGEN 9.8 mg/dL (7-18); CALCIUM 8.9 mg/dL (8.5-10.1)
[2020-11-02 16:49] LABS: CREATININE 0.8 mg/dL (0.55-1.3)
[2020-11-02 16:51] LABS: BILIRUBIN,TOTAL 0.3 mg/dL (0.2-1); TOT PROT 7.5 g/dl (6.4-8.2)
[2020-11-02] MEDS: LORazepam 2 MG TABLET PO SCH ×2 (17:42→22:25)
[2020-11-02] MEDS: MELATONIN 5 MG TABLETS PO SCH (22:25)
[2020-11-02] MEDS: THIAMINE HCL 100 MG TABLET (FP) PO SCH (22:25)
[2020-11-03] MEDS ORDERED: METHADONE HCL 10 MG TABLET ONE (04:22)
[2020-11-03] MEDS ORDERED: METHADONE HCL 40 MG DISPERSABLE TABLET ONE (04:22)
[2020-11-03] MEDS ORDERED: METHADONE HCL 40 MG DISPERSABLE TABLET PO SCH ×2 (06:00)
[2020-11-03] MEDS: METHADONE 120 MG, METHADONE 10 MG PO SCH (06:14)
[2020-11-03] MEDS: LORazepam 2 MG TABLET PO SCH ×4 (06:15→22:23)
[2020-11-03] MEDS: hydrOXYzine PAMOATE 25 MG CAPSULE (FP) PO SCH ×5 (06:15→22:23)
[2020-11-03] MEDS: PRENATAL VITAMINS W/ FOLIC ACID TABLET (FP) PO SCH (10:27)
[2020-11-03] MEDS: NICOTINE 21 MG/24 HOURS TOPICAL PATCH TD SCH (10:27)
[2020-11-03] MEDS: THIAMINE HCL 100 MG TABLET (FP) PO SCH (22:23)
[2020-11-03] MEDS: MELATONIN 5 MG TABLETS PO SCH (22:23)
[2020-11-03] MEDS: QUEtiapine FUMARATE 100 MG TABLET (FP) PO SCH (22:23)
[2020-11-04] MEDS ORDERED: METHADONE HCL 40 MG DISPERSABLE TABLET ONE (03:13)
[2020-11-04] MEDS ORDERED: METHADONE HCL 10 MG TABLET ONE (03:13)
[2020-11-04] MEDS: LORazepam 1 MG TABLET PO SCH ×4 (05:59→22:14)
[2020-11-04] MEDS: hydrOXYzine PAMOATE 25 MG CAPSULE (FP) PO SCH ×2 (06:00→11:03)
[2020-11-04] MEDS: METHADONE 120 MG, METHADONE 10 MG PO SCH (06:00)
[2020-11-04] MEDS ORDERED: hydrOXYzine PAMOATE 25 MG CAPSULE (FP) PO PRN (10:39)
[2020-11-04] MEDS: NICOTINE 21 MG/24 HOURS TOPICAL PATCH TD SCH (10:51)
[2020-11-04] MEDS: PRENATAL VITAMINS W/ FOLIC ACID TABLET (FP) PO SCH (10:51)
[2020-11-04] MEDS: METHOCARBAMOL 500 MG TABLET PO PRN (10:52)
[2020-11-04 11:43] LABS: INR 0.91 (0.83-1.09); PROTHROMBIN TIME (PATIENT) 11.1 SEC (9.7-13.0)
[2020-11-04 11:44] LABS: SGOT/AST 73 U/L (15-37); SGPT/ALT 99 U/L (13-61)
[2020-11-04] MEDS: QUEtiapine FUMARATE 100 MG TABLET (FP) PO SCH (22:14)
[2020-11-04] MEDS: THIAMINE HCL 100 MG TABLET (FP) PO SCH (22:14)
[2020-11-04] MEDS: MELATONIN 5 MG TABLETS PO SCH (23:07)
[2020-11-05] MEDS ORDERED: LORazepam 0.5 MG TABLET PO PRN
[2020-11-05] MEDS ORDERED: METHADONE HCL 40 MG DISPERSABLE TABLET ONE (04:38)
[2020-11-05] MEDS ORDERED: METHADONE HCL 10 MG TABLET ONE (04:38)
[2020-11-05] MEDS: LORazepam 0.5 MG TABLET PO SCH ×4 (07:05→22:11)
[2020-11-05] MEDS: METHADONE 120 MG, METHADONE 10 MG PO SCH (07:06)
[2020-11-05] MEDS: PRENATAL VITAMINS W/ FOLIC ACID TABLET (FP) PO SCH (10:35)
[2020-11-05] MEDS: NICOTINE 21 MG/24 HOURS TOPICAL PATCH TD SCH (10:35)
[2020-11-05] MEDS: METHOCARBAMOL 500 MG TABLET PO PRN ×2 (10:37→17:52)
[2020-11-05] MEDS: THIAMINE HCL 100 MG TABLET (FP) PO SCH (22:11)
[2020-11-05] MEDS: QUEtiapine FUMARATE 100 MG TABLET (FP) PO SCH (22:11)
[2020-11-05] MEDS: MELATONIN 5 MG TABLETS PO SCH (22:13)
[2020-11-06] MEDS ORDERED: METHADONE HCL 10 MG TABLET ONE (04:04)
[2020-11-06] MEDS ORDERED: METHADONE HCL 40 MG DISPERSABLE TABLET ONE (04:05)
[2020-11-06] MEDS ORDERED: LORazepam 0.5 MG TABLET PO ONE (05:00)
[2020-11-06] MEDS: METHADONE 120 MG, METHADONE 10 MG PO SCH (05:23)
[2020-11-06 05:59] VITALS: BP 134/99; PULSE 100; TEMP 97.7
== END 2020-11-06 09:04 | disposition home or self-care (01) | DRG 897 ==
LOC: YASAS 11:47 → Y6N 13:39
PROVIDERS: ADMIT Allergy & Immunology; ATTEND Allergy & Immunology
PROC: HZ2ZZZZ Detoxification Services for Substance Abuse Treatment (ICD-10-PCS; principal; 2020-11-02)
DX: F10.230 Alcohol dependence with withdrawal, uncomplicated (principal); F11.20 Opioid dependence, uncomplicated; F19.282 Other psychoactive substance dependence with psychoactive substance-induced sleep disorder; F12.20 Cannabis dependence, uncomplicated; F17.210 Nicotine dependence, cigarettes, uncomplicated; F31.9 Bipolar disorder, unspecified; F43.10 Post-traumatic stress disorder, unspecified; F19.24 Other psychoactive substance dependence with psychoactive substance-induced mood disorder; M25.552 Pain in left hip; Z88.8 Allergy status to other drugs, medicaments and biological substances; Z86.19 Personal history of other infectious and parasitic diseases
CPT/HCPCS: 36415; 80053; 84450; 84460; 85027; 85610; 86780; C9803; J0735; U0003